=== PATIENT | female | born 1975 ===

== ENCOUNTER 2023-06-03 15:21 | Outpatient (AMB) | payer OTHER, SELFPAY ==
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
[2023-06-03 15:40] VITALS: BP 120/76; PULSE 92; TEMP 37.3; O2SAT 98; BMI 24.1
== END 2023-06-03 16:49 | disposition home or self-care (01) ==
PROVIDERS: Visit Provider Physician Assistant
DX: R10.32 Left lower quadrant pain (principal)
CPT/HCPCS: 81003; 99203

== ENCOUNTER 2023-10-09 08:08 | Outpatient (AMB) | payer OTHER, SELFPAY ==
[2023-10-09 08:25] VITALS: BP 102/70; PULSE 97; TEMP 36.8; O2SAT 99; BMI 24.1
--- NOTE | 2023-10-09 08:25 | MHC.OFFWIV ---
Intake Vital Signs 10/09/23 08:25 Height 5 ft Weight 123 lb 8 oz BMI 24.1 BP 102/70 Blood Pressure Location Lt brachial Position Sitting Pulse 97 Pulse Source Pulse Oximeter Temp 98.3 F Temp Source Oral Pulse Oximetry (%) 99 Oxygen Delivery Method Room Air Intake Visit Reasons: EP both ears pain/pressure Intake Note: Pt presents to the office today for c/o ear pain and pressure that started about 6 weeks ago but states the last 10 days have gotten worse. Pt states she also has head pressure as well. Patient Tobacco Use Status: Never used Tobacco Allergies No Known Allergies Allergy (Verified 10/09/23 08:48) Medication List - Last Reconciled 10/09/23 by Javier Cao, ROSELYN fexofenadine 60 mg PO BID fluticasone propionate 50 mcg/actuation 1 spray intranasal BID methocarbamol 500 mg PO BEDTIME omeprazole 20 mg PO DAILY rimegepant (Nurtec ODT) 75 mg PO DAILY HPI HPI Comments History of Present Illness Details Patient is a 48-year-old female in today for sick visit. Patient states for the past 10 days she has developed symptoms of sinus tenderness and pressure as well as bilateral ear pain and a feeling of ear fullness. She also reports intermittent sinus pressure headache. Patient denies chest pain, chest pressure, dizziness, nausea, vomiting, diarrhea Patient has utilize Mei and fluticasone with mild relief. She states she feels like she has mucus that she needs to bring up is unable to. PFSH Social History Patient Tobacco Use Status: Never used Tobacco Review of Systems Const All systems reviewed & are unremarkable except as noted in HPI and below Physical Exam Vital Signs: Last Vital Signs Temp 98.3 F 10/09/23 08:25 Pulse 97 10/09/23 08:25 BP 102/70 10/09/23 08:25 Pulse Ox 99 10/09/23 08:25 Oxygen Delivery Method Room Air 10/09/23 08:25 BMI result Body Mass Index 24.1 Const Other: Appearance: Alert.? Oriented X3.? No acute distress.? Head: Normocephalic Eyes: Pupils equal, round and reactive to light.?Sclera white. ENT: Pharynx + post nasal drip. No erythema. + sinus tenderness. Bilateral cerumen impaction. Neck: Normal inspection.? Neck supple.?Full ROM. CVS: Normal heart rate and rhythm.? Pulses normal.? Respiratory: No respiratory distress.? Breath sounds normal.? Neuro: Oriented X 3.? Post cerumen removal. Left TM intact and pearly kowalski. Right TM erythema with effusion. Office Procedures Cerumen Removal From which ear canal was the cerumen removed: bilateral Removal: irrigation Notes: patient tolerated procedure well [id number] Irrigation/Lavage Assessment & Plan Assessment & Plan (1) Otitis media of right ear: Comment: Patient is a tightness media of the right ear. Will give amoxicillin. Code(s): H66.91 - Otitis media, unspecified, right ear Qualifiers: Otitis media type: unspecified Qualified Code(s): H66.91 - Otitis media, unspecified, right ear Plan: Take your medications as prescribed. If you were prescribed antibiotics today, it is important that you take your medication to their entirety, do not skip any doses, do not finish them early. Follow-up with your primary care provider this week. Return to the emergency department with new or worsening symptoms. Such as fevers, chills, chest pain, shortness of breath, nausea, vomiting, dizziness, headache, vision changes, lethargy In case of emergency call 911 Plan Follow-up with PCP Orders: Orders SARS-CoV2/FLU/RSV Today J06.9 - Acute upper respiratory infection, unspecified AMB Cerumen Removal Today H61.23 - Impacted cerumen, bilateral Medications: New amoxicillin 875 mg PO Q12H 14 tabs 0RF Coding Level of Care Code Est Pt Level 3 (14067) Diagnoses Right otitis media, unspecified otitis media type H66.91 Otitis media type: unspecified CPT Codes Office Procedure - CPT: 40239-Kuq Irrigation/Lavage ([id number]) Time Spent (min) 26
== END 2023-10-09 09:36 | disposition home or self-care (01) ==
PROVIDERS: Visit Provider Nurse Practitioner Primary Care
DX: H66.91 Otitis media, unspecified, right ear (principal)
CPT/HCPCS: 69209; 99213

== ENCOUNTER 2023-10-09 10:48 | Outpatient (REF) | payer OTHER, SELFPAY ==
[2023-10-09 11:46] LABS: Influenza A PCR NEGATIVE (Negative); Influenza B PCR NEGATIVE (Negative); Resp Syncy Virus RNA Qual PCR NEGATIVE (Negative); SARS COV2 PCR INHOUSE NEGATIVE (Negative)
== END 2023-10-09 10:49 | disposition home or self-care (01) ==
LOC: HO.HMGCLNP 10:48
PROVIDERS: Visit Provider Nurse Practitioner Primary Care
DX: J06.9 Acute upper respiratory infection, unspecified (principal)
CPT/HCPCS: 0241U

== ENCOUNTER 2024-04-20 09:41 | Outpatient (REF) | payer OTHER, SELFPAY | END 2024-04-20 09:42 | disposition home or self-care (01) | LOC: HO.LAB 09:41 | PROVIDERS: Visit Provider Physician Assistant | DX: N30.00 Acute cystitis without hematuria (principal); H66.91 Otitis media, unspecified, right ear; G43.909 Migraine, unspecified, not intractable, without status migrainosus | CPT/HCPCS: 81003; 87086; 99202 ==

== ENCOUNTER 2024-04-20 09:41 | Outpatient (AMB) | payer OTHER, SELFPAY ==
--- NOTE | 2024-04-20 09:42 | AM.OFFWIN_ITS ---
Intake Vital Signs 04/20/24 09:51 Weight 123 lb BP 132/80 Blood Pressure Location Rt brachial Position Sitting Pulse 82 Pulse Source Pulse Oximeter Temp 97.8 F Temp Source Oral Pulse Oximetry (%) 98 Oxygen Delivery Method Room Air Intake Visit Reasons: EP UTI/headache Intake Note: Patient here for frequent urination, headaches that has been present since thursday. Patient Tobacco Use Status: Never used Tobacco Allergies No Known Allergies Allergy (Verified 04/20/24 09:49) Do you need a note to return to daycare/school/sports/work: No HPI HPI Comments History of Present Illness Details History of Present Illness The patient is a 49-year-old female presenting with urinary symptoms suggestive of a urinary tract infection and an assessment for migraine headaches and possible ear infection. The patient reports the onset of urinary tract infection symptoms beginning 5 days ago, which prompted a visit to an urgent care clinic while out of town 4 days ago. There, she was prescribed Macrobid (nitrofurantoin) for treatment. Despite initiation of antibiotic therapy, the patient indicates that symptoms have persisted with no improvement, even as she approaches the final day of her prescribed course. Symptoms include urinary urgency, burning sensation, and pressure, without a noted worsening. She reports no current blood in the urine, fever, or back pain related to the urinary tract infection symptoms. The Macrobid treatment has also caused significant nausea. The patient also reports experiencing headaches, which she describes as persistent and not responsive to her usual migraine medication, Nyrtec (Rizatriptan), which typically provides effective relief. The headache intensity has also led to light sensitivity and cessation of her physical activities. 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 The patient has had surgical intervention to address kidney issues as a child. The patient also mentions experiencing recurring ear infections since relocation and presented concerns regarding her persistent headaches and potential ear infections, as she had a similar experience last year. [facility] Social History Patient Tobacco Use Status: Never used Tobacco Review of Systems Const All systems reviewed & are unremarkable except as noted in HPI and below Physical Exam Vital Signs: Last Vital Signs Temp 97.8 F 04/20/24 09:51 Pulse 82 04/20/24 09:51 BP 132/80 04/20/24 09:51 Pulse Ox 98 04/20/24 09:51 Oxygen Delivery Method Room Air 04/20/24 09:51 Const General: cooperative, healthy appearing, comfortable, no acute distress and well developed Orientation/consciousness: patient oriented x3 Limitations: no limitations HEENT Head: Yes normal to inspection Ears: hearing grossly normal bilaterally, TM normal on the left and TM abnormal dull, wth effusion (right) and erythematous General nose exam: Normal external nose present Face and sinus: Yes normal facial exam Eyes General: appearance normal, both eyes and all related structures Neck Neck: Yes normal visual inspection and Yes full ROM Resp Effort & Inspection: normal respiratory effort and able to speak in complete sentences Skin General skin exam: no rashes or lesions noted Neuro General: patient oriented x3 Extrem General: Yes normal to inspection Results AMB Urinalysis, Automated UA Leukoctes 0 Lilia/uL Last Edit by Kathy Armstrong [facility] on 04/20/24 10:15 UA Nitrite Negative Last Edit by Kathy Armstrong [facility] on 04/20/24 10:15 UA Urobilinogen 0.2 mg/dL Last Edit by Kathy Armstrong [facility] on 04/20/24 10:15 UA Protein 0 mg/dL Last Edit by Kathy Armstrong [facility] on 04/20/24 10:15 UA pH 6.0 Last Edit by Kathy Armstrong [facility] on 04/20/24 10:15 UA Blood 0 [place]/uL Last Edit by Kathy Armstrong [facility] on 04/20/24 10:15 UA Specific [place] 0 Last Edit by Kathy Armstrong [facility] on 04/20/24 10:1 5 UA Ketone Negative Last Edit by Kathy Armstrong [facility] on 04/20/24 10:15 UA Bilirubin 0 mg/dL Last Edit by Kathy Armstrong [facility] on 04/20/24 10:15 UA Glucose 0 mg/dL Last Edit by Kathy Armstrong [facility] on 04/20/24 10:15 Assessment & Plan Assessment & Plan (1) UTI (urinary tract infection): Code(s): N39.0 - Urinary tract infection, site not specified Qualifiers: Urinary tract infection type: acute cystitis Hematuria presence: without hematuria Qualified Code(s): N30.00 - Acute cystitis without hematuria Plan: UA negative for infection or blood. Will treat for Urinary Tract Infection based on symptoms. Continue with the current course of Macrobid until completion. Initiate cefuroxime for a potential complicated urinary tract infection should symptoms persist after finishing Macrobid. A urine culture will be performed to monitor bacterial growth and antibiotic sensitivity. (2) Otitis media of right ear: Comment: Code(s): H66.91 - Otitis media, unspecified, right ear Qualifiers: Otitis media type: unspecified Qualified Code(s): H66.91 - Otitis media, unspecified, right ear Plan: Acute Otitis Media: Prescribed cefuroxime, which covers ear infections; dosage as needed to cover both urinary tract symptoms and otitis media. Likely causing headache symptoms. (3) Migraine headache: Code(s): G43.909 - Migraine, unspecified, not intractable, without status migrainosus Qualifiers: Migraine type: unspecified Status migrainosus presence: without status migrainosus Intractability: not intractable Qualified Code(s): G43.909 - Migraine, unspecified, not intractable, without status migrainosus Plan: Migraine Headache: Provide symptomatic treatment with Tylenol acetaminophen) and ibuprofen in alternating doses as part of adjunct therapy. Treated with hydration and lifestyle modifications such as rest and caffeine intake to manage headache symptoms. Consideration that the headache may be exacerbated by the ear infection. Plan Patient was informed and verbally consented to the use of an ambient scribe for clinic note documentation during this visit. Orders: Orders Urine Culture Today N39.0 - Urinary tract infection, site not specified Coding Level of Care Code New Pt Level 4 (95932) Diagnoses Acute cystitis without hematuria N30.00 Urinary tract infection type: acute cystitis Hematuria presence: without hematuria Right otitis media, unspecified otitis media type H66.91 Otitis media type: unspecified Migraine without status migrainosus, not intractable, unspecified migraine type G43.909 Migraine type: unspecified Status migrainosus presence: without status migrainosus Intractability: not intractable
--- OUTSIDE RECORDS SUMMARY | 2024-04-20 09:44 | XMS_ITS | Continuity of Care Document ---
Author Organization [facility] Address [address] [place] [address]- Care Team Providers Care Optimization Analyst Name Role Phone Kiley Call MD, V Primary Care Physician [phone] [place] [facility] [place]/23 [facility] [address] [place], [place] [id number]- [place] Allergies, Adverse Reactions, Alerts No Known Medication Allergies Medications Mei 12 Hour Allergy 60 mg oral tablet 1 tablet = 60 mg, By Mouth, 2 times a day, # 60 tablet, 6 Refills, Maintenance, 08/27/23 11:28:00 EDT, [id number], Partial fill upon patient request if the prescription is for a schedule II opioid drug., 153, cm, 08/27/23 11:13:00 EDT... Start Date: 08/27/23 Status: Ordered Botox Inj 0 Refills, Maintenance, 01/28/23 15:45:00 EDT, Partial fill upon patient request if the prescription is for a schedule II opioid drug. Start Date: 01/28/23 Status: Ordered diclofenac 1% topical gel 1 application, Topically, 4 times a day, # 100 Gm, 0 Refills, Maintenance, 06/23/23 11:54:00 EST, Gel, [facility] #[id number], Partial fill upon patient request if the prescription is for a schedule II opioid drug., 153, cm, 01/28/23 15:40:00 EDT... Start Date: 06/23/23 Status: Ordered Fish Oil By Mouth, 0 Refills, Maintenance, 10/05/23 17:22:00 EDT, Partial fill upon patient request if the prescription is for a schedule II opioid drug. Start Date: 10/05/23 Status: Ordered Flonase Allergy Relief 50 mcg/inh nasal spray 1 sprays, Nares, Both, 2 times a day, PRN Congestion, # 16 Gm, 3 Refills, Maintenance, 03/02/23 8:07:00 EDT, [facility] #[id number], Partial fill upon patient request if the prescription is for a schedule II opioid drug., 153, cm, 01/28/23 15:40:... Start Date: 03/02/23 Status: Ordered metroNIDAZOLE 0.75% topical cream 0 Refills, Maintenance, 12/23/23 16:21:00 EDT, Partial fill upon patient request if the prescription is for a schedule II opioid drug. Start Date: 12/23/23 Status: Ordered Multivitamin 0 Refills, Maintenance, 10/05/23 17:22:00 EDT, Partial fill upon patient request if the prescription is for a schedule II opioid drug. Start Date: 10/05/23 Status: Ordered Nurtec ODT 75 mg oral tablet, disintegrating 1 tablet = 75 mg, By Mouth, Every 24 hours, PRN as needed for migraine headache, not to exceed 75 mg in 24 hours, # 30 tablet, 6 Refills, Maintenance, 03/11/23 12:32:00 EDT, DIS Tablet, [facility] #[id number], Partial fill upon patient request if... Start Date: 03/11/23 Status: Ordered omeprazole 20 mg oral enteric coated capsule 1 capsule, By Mouth, Daily, # 90 capsule, 3 Refills, Maintenance, 12/29/23 8:37:00 EDT, [facility] #[id number], 152.4, cm, 12/23/23 16:22:00 EDT, Height, 56.1, kg, 11/23/23 10:11:00 EDT, Dry Weight Start Date: 12/29/23 Status: Ordered Vitamin B12 0 Refills, Maintenance, 10/05/23 17:22:00 EDT, Partial fill upon patient request if the prescription is for a schedule II opioid drug. Start Date: 10/05/23 Status: Ordered Problem List Condition Confirmation Course Effective Dates Status Health St atus Informant Allergic rhinitis with postnasal drip Confirmed Active Synovitis of finger Confirmed Active Greater trochanteric bursitis of left hip Confirmed Active History of traumatic brain injury Confirmed Active Schatzki's ring of distal esophagus Confirmed Active Snoring Confirmed Active Social History Social History Type Response Smoking Status Never (less than 100 in lifetime) entered on: 01/28/23 Sex Patient Care team information Care Team Personnel Name: Kiley Call MD, V Position: [facility] Physician - Primary Care Member Role: PCP Address: Address: [address] [place] [address]- Care Team Related Persons Name: SOLANGE MEADOWS Address: home [address] [place] [address]
--- OUTSIDE RECORDS SUMMARY | 2024-04-20 09:45 | XMS_ITS | Continuity of Care Document ---
Author Organization [facility] Address [address] [place] [address]- Care Team Providers Care Network Control Technician Name Role Phone Kiley Call MD, V Primary Care Physician Encounter [facility] ACCT R [id number] Date(s): 09/18/23 - 10/18/23 [facility] [address] [place], [place] [address] Allergies, Adverse Reactions, Alerts No Known Medication Allergies Medications Mei 12 Hour Allergy 60 mg oral tablet 1 tablet = 60 mg, By Mouth, 2 times a day, # 60 tablet, 6 Refills, Maintenance, 08/27/23 11:28:00 EDT, [facility] #[id number], Partial fill upon patient request if the [...] 0 Refills, Maintenance, 06/23/23 11:54:00 EST, Gel, [facility] #[id number], Partial fill upon patient request if the [...] Gm, 3 Refills, Maintenance, 03/02/23 8:07:00 EDT, [facility] #[id number], Partial fill upon patient request if the prescription is for a schedule II opioid drug., 153, cm, 01/28/23 15:40:... Start Date: 03/02/23 Status: Ordered Multivitamin 0 Refills, Maintenance, 10/05/23 [...] Refills, Maintenance, 03/11/23 12:32:00 EDT, DIS Tablet, [facility] #[id number], Partial fill upon patient request if... Start Date: 03/11/23 Status: Ordered PriLOSEC OTC 20 mg oral delayed release tablet 1 tablet = 20 mg, By Mouth, Daily, # 90 tablet, 3 Refills, Maintenance, 03/03/23 7:55:00 EDT, EC Tablet, [facility] #[id number], Partial fill upon patient request if the prescription is for a schedule II opioid drug., 153, cm, 01/28/23 15:40:00 E... Start Date: 03/03/23 Status: Ordered Vitamin B12 0 Refills, Maintenance, [...] Care team information Care Team Personnel Name: Jakub DAVIS, Kiley Dawkins Position: S Physician - Primary Care Member Role: PCP Address: Address: [address] [place] [address]- Care Team Related Persons Name: SOLANGE GRANADOS Address: home [address] [place] [address]
--- OUTSIDE RECORDS SUMMARY | 2024-04-20 09:45 | XMS_ITS | Continuity of Care Document ---
Author Organization [facility] Address [address] [place] [address]- Care Team Providers Care Management Liaison Name Role Phone Jakub DAVIS, Kiley Dawkins Primary Care Physician Encounter [facility] Date(s): 06/23/23 - 06/30/23 [facility] [address] [place], [place] [address] Encounter Diagnosis Hip bursitis, left(Discharge Diagnosis) - 06/23/23 Schatzki's ring of distal esophagus(Discharge Diagnosis) - 06/23/23 Synovitis of finger(Discharge Diagnosis) - 06/23/23 Facial skin lesion(Discharge Diagnosis) - 06/23/23 Snoring(Discharge Diagnosis) - 06/23/23 Attending Physician: Jakub DAVIS, Kiley Dawkins Allergies, Adverse Reactions, Alerts No Known Medication Allergies Medications Botox Inj 0 Refills, Maintenance, 01/28/23 15:45:00 EDT, Partial fill upon patient request if the prescription is for a schedule II opioid drug. Start Date: 01/28/23 Status: Ordered diclofenac 1% topical gel 1 application, Topically, 4 times a day, # 100 Gm, 0 Refills, Maintenance, 06/23/23 11:54:00 EST, Gel, [facility] #[id number], Partial fill upon patient request if the prescription is for a schedule II opioid drug., 153, cm, 01/28/23 15:40:00 EDT... Start Date: 06/23/23 Status: Ordered Flonase Allergy Relief 50 mcg/inh nasal spray 1 sprays, Nares, Both, 2 times a day, PRN Congestion, # 16 Gm, 3 Refills, Maintenance, 03/02/23 8:07:00 EDT, [facility] #[id number], Partial fill upon patient request if the prescription is for a schedule II opioid drug., 153, cm, 01/28/23 15:40:... Start Date: 03/02/23 Status: Ordered Nurtec ODT 75 mg oral tablet, disintegrating 1 tablet = 75 mg, By Mouth, Every 24 hours, PRN as needed for migraine headache, not to exceed 75 mg in 24 hours, # 30 tablet, 6 Refills, Maintenance, 03/11/23 12:32:00 EDT, DIS Tablet, [facility] #[id number], Partial fill upon patient request if... Start Date: 03/11/23 Status: Ordered PriLOSEC OTC 20 mg oral delayed release tablet 1 tablet = 20 mg, By Mouth, Daily, # 90 tablet, 3 Refills, Maintenance, 03/03/23 7:55:00 EDT, EC Tablet, [facility] #[id number], Partial fill upon patient request if the prescription is for a schedule II opioid drug., 153, cm, 01/28/23 15:40:00 E... Start Date: 03/03/23 Status: Ordered Problem List Condition Confirmation Course Effective Dates Status Health St atus Informant Hip bursitis, left Confirmed Active Synovitis of finger Confirmed Active Facial skin lesion Confirmed Active Schatzki's ring of distal esophagus Confirmed Active Snoring Confirmed Active Diagnosis Diagnosis Type Effective Dates Health Status inical Service Informant Hip bursitis, left Discharge Diagnosis 06/23/23 Schatzki's ring of distal esophagus Discharge Diagnosis 06/23/23 Synovitis of finger Discharge Diagnosis 06/23/23 Facial skin lesion Discharge Diagnosis 06/23/23 Snoring Discharge Diagnosis 06/23/23 Vital Signs Most recent to oldest [Reference Range]: 1 Height 153 cm (06/23/23 1:43 PM) Weight 53.6 kg (06/23/23 1:43 PM) Social History Social History Type Response Smoking Status Never (less than 100 in lifetime) entered on: 01/28/23 Sex Note * Margie Deshpande: PERFORM, SIGN, VERIFY Event Display: Patient Education/Instruction Authored Date: [id number] [facility] Clinical Summary Name MADISON MEADOWS Age 48 Years 1975 PCP Kiley Call MD, V PCP Visit Date 06/23/2023 11:23:00 Additional Instructions: Scheduled Appointments?? Future Appointments ?*[facility] ?[address] ?[place],??[place],??[address] ?Phone:??--?Fax:??-- ?Appt. Date:??07/07/2023?7:30 AM ?Scheduled Provider:??Venkatesh DAVIS, Denys Marrufo ?*[facility] ?[address]??[place],??[place],??[address] ?Phone:??--?Fax:??-- ?Appt. Date:??07/30/2023?4:00 PM ?Scheduled Provider:??Kiley Call MD, V Follow-Up Instructions ?? Diagnosis Other bursitis of hip, left hip Medications: Please continue your medications until treatment is completed or stopped by your provider. Discuss any questions related to medications with your provider. New Medications [id number], [address] [place] [id number], [phone] Diclofenac Topical (diclofenac 1% topical gel) 1 lewis Topically 4 times a day. Refills: 0. Next Dose: Medications to Continue with No Changes These medications were not printed or sent to your pharmacy Fluticasone Nasal (Flonase Allergy Relief 50 mcg/inh nasal spray) 1 spray(s) Nares, Both twice a day as needed Congestion. Refills: 3. Next Dose: Omeprazole (PriLOSEC OTC 20 mg oral delayed release tablet) 1 tab(s) Oral Daily. Refills: 3. Next Dose: onabotulinumtoxinA (Botox Inj) Next Dose: rimegepant (Nurtec ODT 75 mg oral tablet, disintegrating) 1 tab(s) Oral every 24 hours as needed asneeded for migraine headache. not to exceed 75 mg in 24 hours. Refills: 6. Next Dose: Allergy Info:?? No Known Medication Allergies Medications Given This Visit Future Orders ?Hip Comp 2 Views Left? Order Date:06/23/23?- Complete by?06/23/23 ?MM Digital Mammo Screening? Order Date:06/23/23?- Complete on or after?06/23/23 Vital Signs Height Weight BMI Blood Pressure / Temperature Pulse Rate Respiratory Rate 02 Sat Mode of Delivery / You can now view a summary of your hospital visit from the comfort of your home through a free online portal called [employer]. [employer] is a website that allows you to securely view your medical information including discharge summary, medications and follow-up visits. ??You can alsosend a secure electronic message to your doctor???s office to request appointments, renew medications or just ask a question. You can enroll at [email or web address] or register during your next office visit. Disclaimer:?? The information provided is of a general nature and is intended to be used in conjunction with the recommendations and advice of your health care practitioner. ??Every effort has been made to ensure that the information provided is accurate and complete at the time it is provided to you however, as your needs change, or, as new ??information becomes available, different or additional instructions may be required. If you have questions, please consult with your primary care provider or pharmacist, as appropriate. ??This information is not intended to serve as substitution for assessment and evaluation by a qualified health care provider. If you do not have a primary care provider, you may find a [facility] provider by calling [facility] at [phone]. [facility], in keeping with [facility] guidance, no longer requires face masks for staff, patientsor visitors in most situations. Similar to time spent indoors at other locations, there is the chance that you were exposed to respiratory viruses during your time with us (such as flu or COVID-19).? If you develop symptoms concerning for a viral respiratory infection, please seek testing (and treatment if indicated) from your medical provider or home test kit. For information about the plan of care including goals and instructions for your diagnosis, please see the patient education orders section of this document. Patient Education Materials?? The content of this educational material or handout may have been modified, supplemented, or adapted from its original content and format to support your individualized medical care. Patient Care team information Care Team Personnel Name: Kiley Call MD, V Position: [facility] Physician - Primary Care Member Role: PCP Address: Address: [address] [place] [address]- [place] Care Team Related Persons Name: SOLANGE GRANADOS Address: home [address] [place], [place] [id number]
--- OUTSIDE RECORDS SUMMARY | 2024-04-20 09:45 | XMS_ITS | Continuity of Care Document ---
Author Organization [facility] Address [address] [place] [address]- Care Team Providers Care Plastic Sheets Finishing Supervisor Name Role Phone Kiley Call MD, V Primary Care Physician Encounter [facility] Date(s): 11/04/23 - 11/11/23 [facility] [address] [place] [address]- Encounter Diagnosis Greater trochanteric pain syndrome of right lower extremity(Discharge Diagnosis) - 11/04/23 Hamstring tendinitis of right thigh(Discharge Diagnosis) - 11/04/23 Pes anserinus bursitis of right knee(Discharge Diagnosis) - 11/04/23 Attending Physician: Mikie Gunter MD Referring Physician: Kiley Call MD, V Allergies, Adverse Reactions, Alerts No Known Medication Allergies Medications Mei 12 Hour Allergy 60 mg oral tablet 1 tablet = 60 mg, By Mouth, 2 times a day, # 60 tablet, 6 Refills, Maintenance, 08/27/23 11:28:00 EDT, [facility] #[id number], Partial fill upon patient request if the [...] 0 Refills, Maintenance, 06/23/23 11:54:00 EST, Gel, [facility] #[id number], Partial fill upon patient request if the [...] Gm, 3 Refills, Maintenance, 03/02/23 8:07:00 EDT, [facility] #[id number], Partial fill upon patient request if the [...] Refills, Maintenance, 03/11/23 12:32:00 EDT, DIS Tablet, [facility] #[id number], Partial fill upon patient request if... Start Date: 03/11/23 Status: Ordered PriLOSEC OTC 20 mg oral delayed release tablet 1 tablet = 20 mg, By Mouth, Daily, # 90 tablet, 3 Refills, Maintenance, 03/03/23 7:55:00 EDT, EC Tablet, [facility] #[id number], Partial fill upon patient request if the [...] Diagnosis Diagnosis Type Effective Dates Health Status Clinical Service Informant Greater trochanteric pain syndrome of right lower extremity Discharge Diagnosis 11/04/23 Hamstring tendinitis of right thigh Discharge Diagnosis 11/04/23 Pes anserinus bursitis of right knee Discharge Diagnosis 11/04/23 Vital Signs Most recent to oldest [Reference Range]: 1 Height 153 cm (11/04/23 4:20 PM) Weight 58.4 kg (11/04/23 4:20 PM) Oxygen Saturation [94-100 %] 98 % (11/04/23 4:20 PM) Pulse Rate [55-90 bpm] 87 bpm (11/04/23 4:20 PM) Body Mass Index [18.5-24.99 kg/m2] 24.95 kg/m2 (11/04/23 4:20 PM) Blood Pressure [90-138/55-84 mm Hg] 113/ 78mm Hg (11/04/23 4:20 PM) Respiratory Rate [16-30 br/min] 16 br/mi n (11/04/23 4:20 PM) Blood pressure sites Arm, right (11/04/23 4:20 PM) Weight Obtained Via Bed scale (11/04/23 4:20 PM) Social History Social History Type Response Smoking Status Never (less than 100 in lifetime) entered on: 01/28/23 Sex Patient Care team information Care Team Personnel Name: Kiley Call MD, V Position: [facility] Physician - Primary Care Member Role: PCP Address: Address: [address] [place] [address]- Care Team Related Persons Name: SOLANGE GRANADOS Address: home [address] [place] [address]
--- OUTSIDE RECORDS SUMMARY | 2024-04-20 09:45 | XMS_ITS | Continuity of Care Document ---
Author Organization [facility] Address [address] [facility], [address], [address] [place] [address]- Care Team Providers Care Collateral Specialist Name Role Phone Kiley Call MD, V Primary Care Physician [phone] Encounter [facility] ACCT R [id number] Date(s): 06/26/23 - 07/26/23 [facility] [address], [address], [address] [place] [address] Allergies, Adverse Reactions, Alerts No Known Medication Allergies Medications Botox Inj 0 Refills, Maintenance, 01/28/23 15:45:00 EDT, Partial fill upon patient request if the prescription is for a schedule II opioid drug. Start Date: 01/28/23 Status: Ordered diclofenac 1% topical gel 1 application, Topically, 4 times a day, # 100 Gm, 0 Refills, Maintenance, 06/23/23 11:54:00 EST, Gel, [facility] #[id number], Partial fill upon patient request if the prescription is for a schedule II opioid drug., 153, cm, 01/28/23 15:40:00 EDT... Start Date: 06/23/23 Status: Ordered Flonase Allergy Relief 50 mcg/inh nasal spray 1 sprays, Nares, Both, 2 times a day, PRN Congestion, # 16 Gm, 3 Refills, Maintenance, 03/02/23 8:07:00 EDT, [facility] #[id number], Partial fill upon patient request if the [...] Refills, Maintenance, 03/11/23 12:32:00 EDT, DIS Tablet, [facility] #[id number], Partial fill upon patient request if... Start Date: 03/11/23 Status: Ordered PriLOSEC OTC 20 mg oral delayed release tablet 1 tablet = 20 mg, By Mouth, Daily, # 90 tablet, 3 Refills, Maintenance, 03/03/23 7:55:00 EDT, EC Tablet, [facility] #[id number], Partial fill upon patient request if the prescription is for a schedule II opioid drug., 153, cm, 01/28/23 15:40:00 E... Start Date: 03/03/23 Status: Ordered Problem List Condition Confirmation Course Effective Dates Status Health St atus Informant Synovitis of finger Confirmed Active Greater trochanteric bursitis of left hip Confirmed Active Facial skin lesion Confirmed Active Schatzki's ring of distal esophagus Confirmed Active Snoring Confirmed Active Social History Social History Type Response Smoking Status Never (less than 100 in lifetime) entered on: 01/28/23 Sex Patient Care team information Care Team Personnel Name: Jakub DAVIS, Kiley Dawkins Position: [facility] Physician - Primary Care Member Role: PCP Address: Address: [address] [place] [address]- Care Team Related Persons Name: SOLANGE GRANADOS Address: home [address] [place], [place] [id number]
--- OUTSIDE RECORDS SUMMARY | 2024-04-20 09:45 | XMS_ITS | Continuity of Care Document ---
Author Organization [facility] Address [address] [place] [address]- Care Team Providers Care Device Test Engineer Name Role Phone Jakub DAVIS, Kiley Dawkins Primary Care Physician Encounter [facility] [place] Date(s): 05/28/23 - 06/27/23 [facility] [address] [place], [place] [address] Allergies, Adverse Reactions, Alerts No Known Medication Allergies Medications Botox Inj 0 Refills, Maintenance, 01/28/23 15:45:00 EDT, Partial fill upon patient request if the prescription is for a schedule II opioid drug. Start Date: 01/28/23 Status: Ordered diclofenac 1% topical gel 1 application, Topically, 4 times a day, # 100 Gm, 0 Refills, Maintenance, 06/23/23 11:54:00 EST, Gel, [facility] #[id number], Partial fill upon patient request if the prescription is for a schedule II opioid drug., 153, cm, 01/28/23 15:40:00 EDT... Start Date: 06/23/23 Status: Ordered Flonase Allergy Relief 50 mcg/inh nasal spray 1 sprays, Nares, Both, 2 times a day, PRN Congestion, # 16 Gm, 3 Refills, Maintenance, 03/02/23 8:07:00 EDT, [facility] #[id number], Partial fill upon patient request if the [...] Refills, Maintenance, 03/11/23 12:32:00 EDT, DIS Tablet, [facility] #[id number], Partial fill upon patient request if... Start Date: 03/11/23 Status: Ordered PriLOSEC OTC 20 mg oral delayed release tablet 1 tablet = 20 mg, By Mouth, Daily, # 90 tablet, 3 Refills, Maintenance, 03/03/23 7:55:00 EDT, EC Tablet, [facility] #[id number], Partial fill upon patient request if the [...] Personnel Name: Jakub DAVIS, Kiley Dawkins Position: [facility] Physician - Primary Care Member Role: PCP Address: Address: [address] [place] [address]- Care Team Related Persons Name: SOLANGE GRANADOS Address: home [address] [place] [id number]
--- OUTSIDE RECORDS SUMMARY | 2024-04-20 09:45 | XMS_ITS | Continuity of Care Document ---
Author Organization [facility] Address [address] [place] [address]- Care Team Providers Care Sales Research Analyst Name Role Phone Not on Staff, PCP Primary Care Physician Unavail able En[place] [facility] Date(s): 01/28/23 - 02/04/23 [facility] [address] [place], [place] [address] Encounter Diagnosis Schatzki's ring of distal esophagus(Discharge Diagnosis) - 01/28/23 Establishing care with new doctor, encounter for(Discharge Diagnosis) - 01/28/23 Chronic migraine without aura, not intractable, without status migrainosus (Discharge Diagnosis) - 01/28/23 Attending Physician: Kiley Call MD, V Allergies, Adverse Reactions, Alerts No Known Medication Allergies Medications Botox Inj 0 Refills, Maintenance, 01/28/23 15:45:00 EDT, Partial fill upon patient request if the prescription is for a schedule II opioid drug. Start Date: 01/28/23 Status: Ordered Flonase Daily, 0 Refills, Maintenance, 01/28/23 15:44:00 EDT, Partial fill upon patient request if the prescription is for a schedule II opioid drug. Start Date: 01/28/23 Status: Ordered Nurtec ODT 75 mg oral tablet, disintegrating 1 tablet = 75 mg, By Mouth, Every 24 hours, PRN as needed for migraine headache, not to exceed 75 mg in 24 hours, # 8 tablet, 5 Refills, Maintenance, 01/28/23 15:44:00 EDT, [facility] Table[facility], Partial fill upon patient request if the prescription is for a rashi... Start Date: 01/28/23 Status: Ordered PriLOSEC OTC 20 mg oral delayed release tablet 1 tablet = 20 mg, By Mouth, Daily, # 30 tablet, 0 Refills, Maintenance, 01/28/23 15:44:00 EDT, [facility], Partial fill upon patient request if the prescription is for a schedule II opioid drug. Start Date: 01/28/23 Status: Ordered Problem List Condition Confirmation Course Effective Dates Status Health St atus Informant Schatzki's ring of distal esophagus Confirmed Active Migraines Confirmed Active Establishing care with new doctor, encounter for Confirmed Active Diagnosis Diagnosis Type Effective Dates Health Status Clinical Service Informant Chronic migraine without aura, not intractable, without status migrainosus Discharge Diagnosis 01/28/23 Establishing care with new doctor, encounter for Discharge Diagnosis 01/28/23 Schatzki's ring of distal esophagus Discharge Diagnosis 01/28/23 Vital Signs Most recent to oldest [Reference Range]: 1 Height 153 cm (01/28/23 3:40 PM) Weight 53.6 kg (01/28/23 3:40 PM) Body Mass Index [18.5-24.99 kg/m2] 22.9 kg/m2 (01/28/23 3:40 PM) Weight Obtained Via Patient/family state d (01/28/23 3:40 PM) Social History Social History Type Response Smoking Status Never (less than 100 in lifetime) entered on: 01/28/23 Sex Patient Care team information Care Team Personnel Name: Not on Staff, PCP Position: S Physician (General Medicine) Member Role: PCP Care Team Related Persons Name: SOLANGE GRANADOS Address: home [address] [place], [place] [id number]
--- OUTSIDE RECORDS SUMMARY | 2024-04-20 09:45 | XMS_ITS | Continuity of Care Document ---
Author Organization [facility] Address [address] [place] [address]- Care Team Providers Care Pricing/Signage Team Member Name Role Phone Not on Staff, PCP Primary Care Physician Unavail able Encounter [facility] [place] Date(s): 02/26/23 - 03/28/23 [facility] [address] [place], [place] [address] Allergies, Adverse Reactions, Alerts No Known Medication Allergies Medications Botox Inj 0 Refills, Maintenance, 01/28/23 15:45:00 EDT, Partial fill upon patient request if the prescription is for a schedule II opioid drug. Start Date: 01/28/23 Status: Ordered Flonase Allergy Relief 50 mcg/inh nasal spray 1 sprays, Nares, Both, 2 times a day, PRN Congestion, # 16 Gm, 3 Refills, Maintenance, 03/02/23 8:07:00 EDT, [facility] #[id number], Partial fill upon patient request if the [...] Refills, Maintenance, 03/11/23 12:32:00 EDT, DIS Tablet, [facility] #[id number], Partial fill upon patient request if... Start Date: 03/11/23 Status: Ordered PriLOSEC OTC 20 mg oral delayed release tablet 1 tablet = 20 mg, By Mouth, Daily, # 90 tablet, 3 Refills, Maintenance, 03/03/23 7:55:00 EDT, EC Tablet, [facility] #[id number], Partial fill upon patient request if the prescription is for a schedule II opioid drug., 153, cm, 01/28/23 15:40:00 E... Start Date: 03/03/23 Status: Ordered Problem List Condition Confirmation Course Effective Dates Status Health St atus Informant Schatzki's ring of distal esophagus Confirmed Active Migraines Confirmed Active Establishing care with new doctor, encounter for Confirmed Active Social History Social History Type Response Smoking Status Never (less than 100 in lifetime) entered on: 01/28/23 Sex Patient Care team information Care Team Personnel Name: Not on Staff, PCP Position: [facility] Physician (General Medicine) Member Role: PCP Care Team Related Persons Name: DARWINSOLANGE Address: home [address] [place] [address]
--- OUTSIDE RECORDS SUMMARY | 2024-04-20 09:45 | XMS_ITS | Continuity of Care Document ---
Author Organization [facility] Address [address] [place] [address]- Care Team Providers Care Cement Loader Name Role Phone Not on Staff, PCP Primary Care Physician Unavail able Encounter [facility] Date(s): 02/25/23 - 03/27/23 [facility] [address] [place], [place] [address] Allergies, Adverse Reactions, Alerts No Known [...] Gm, 3 Refills, Maintenance, 03/02/23 8:07:00 EDT, [facility] #[id number], Partial fill upon patient request if the [...] Refills, Maintenance, 03/11/23 12:32:00 EDT, DIS Tablet, [facility] #[id number], Partial fill upon patient request if... Start Date: 03/11/23 Status: Ordered PriLOSEC OTC 20 mg oral delayed release tablet 1 tablet = 20 mg, By Mouth, Daily, # 90 tablet, 3 Refills, Maintenance, 03/03/23 7:55:00 EDT, EC Tablet, [facility] #[id number], Partial fill upon patient request if the [...] Personnel Name: Not on Staff, PCP Position: [facility] Physician (General Medicine) Member Role: PCP Care Team Related Persons Name: DARWINSOLANGE Address: home [address] [place] [address]
--- OUTSIDE RECORDS SUMMARY | 2024-04-20 09:45 | XMS_ITS | Continuity of Care Document ---
Author Organization [facility] Address [address] [place] [address]- Care Team Providers Care Field Mechanic/Site Lead Name Role Phone Kiley Call MD, V Primary Care Physician [phone] [id number] Date([facility] 09/18/[facility] - 01/06/[address] [address]- Encounter Diagnosis Primary osteoarthritis, left hand(Final) - Discharge Disposition: A-D/C Home Attending Physician: Kiley Call MD, V Admitting Physician: Kiley Call MD, V Referring Physician: Kiley Call MD, V Allergies, Adverse Reactions, Alerts No Known Medication Allergies Medications Mei 12 Hour Allergy 60 mg oral tablet 1 tablet = 60 mg, By Mouth, 2 times a day, # 60 tablet, 6 Refills, Maintenance, 08/27/23 11:28:00 EDT, [facility] #[id number], Partial fill upon patient request if the [...] 0 Refills, Maintenance, 06/23/23 11:54:00 EST, Gel, [facility] #[id number], Partial fill upon patient request if the [...] Gm, 3 Refills, Maintenance, 03/02/23 8:07:00 EDT, [facility] #[id number], Partial fill upon patient request if the [...] Refills, Maintenance, 03/11/23 12:32:00 EDT, DIS Tablet, [facility] #[id number], Partial fill upon patient request if... Start Date: 03/11/23 Status: Ordered omeprazole 20 mg oral enteric coated capsule 1 capsule, By Mouth, Daily, # 90 capsule, 3 Refills, Maintenance, 12/29/23 8:37:00 EDT, [facility] #[id number], 152.4, cm, 12/23/23 16:22:00 EDT, Height, 56.1, [...] Personnel Name: Kiley Call MD, V Position: [facility] Physician - Primary Care Member Role: PCP Address: Address: [address] [place] [address]- Care Team Related Persons Name: SOLANGE MEADOWS Address: home [address] [place] [address]
--- OUTSIDE RECORDS SUMMARY | 2024-04-20 09:45 | XMS_ITS | Continuity of Care Document ---
Author Organization [facility] Address [address] [place] [address]- Care Team Providers Care Mirror Department Supervisor Name Role Phone Kiley Call MD, V Primary Care Physician Encounter [facility] Date(s): 09/23/23 - 10/23/23 [facility] [address] [place] [address]- [place] Allergies, Adverse Reactions, Alerts No Known Medication Allergies Medications Mei 12 Hour Allergy 60 mg oral tablet 1 tablet = 60 mg, By Mouth, 2 times a day, # 60 tablet, 6 Refills, Maintenance, 08/27/23 11:28:00 EDT, [facility] #[id number], Partial fill upon patient request if the [...] 0 Refills, Maintenance, 06/23/23 11:54:00 EST, Gel, [facility] #[id number], Partial fill upon patient request if the [...] Gm, 3 Refills, Maintenance, 03/02/23 8:07:00 EDT, [facility] #[id number], Partial fill upon patient request if the [...] Refills, Maintenance, 03/11/23 12:32:00 EDT, DIS Tablet, [facility] #08825, Partial fill upon patient request if... Start Date: 03/11/23 Status: Ordered PriLOSEC OTC 20 mg oral delayed release tablet 1 tablet = 20 mg, By Mouth, Daily, # 90 tablet, 3 Refills, Maintenance, 03/03/23 7:55:00 EDT, EC Tablet, [facility] #[id number], Partial fill upon patient request if the [...] Personnel Name: Jakub DAVIS, Kiley Dawkins Position: [facility] Physician - Primary Care Member Role: PCP Address: Address: [address] [place] [address]- Care Team Related Persons Name: SOLANGE GRANADOS Address: [address] [address]
--- OUTSIDE RECORDS SUMMARY | 2024-04-20 09:45 | XMS_ITS | Continuity of Care Document ---
Author Organization [facility] Address [address] [place] [address]- Care Team Providers Care Supervisor Mill Name Role Phone Not on Staff, PCP Primary Care Physician Unavail able Encounter [facility] Date(s): 03/11/23 - 04/10/23 [facility] [address] [place], [place] [address] Allergies, Adverse Reactions, Alerts No Known [...] Gm, 3 Refills, Maintenance, 03/02/23 8:07:00 EDT, [facility] #[id number], Partial fill upon patient request if the [...] Refills, Maintenance, 03/11/23 12:32:00 EDT, DIS Tablet, [facility] #[id number], Partial fill upon patient request if... Start Date: 03/11/23 Status: Ordered PriLOSEC OTC 20 mg oral delayed release tablet 1 tablet = 20 mg, By Mouth, Daily, # 90 tablet, 3 Refills, Maintenance, 03/03/23 7:55:00 EDT, EC Tablet, [facility] #[id number], Partial fill upon patient request if the [...] Related Persons Name: SOLANGE GRANADOS Address: home [address] [place], [place] [id number]
--- OUTSIDE RECORDS SUMMARY | 2024-04-20 09:45 | XMS_ITS | Continuity of Care Document ---
Author Organization [facility] Address [address], [place] [address]- Care Team Providers Care Surplus Property Disposal Agent Name Role Phone Kiley Call MD, V Primary Care Physician Encounter [facility] Date(s): 02/19/24 - 03/20/24 [facility] [address] [place], [place] [address] Allergies, Adverse Reactions, Alerts No Known Medication Allergies Medications Mei 12 Hour Allergy 60 mg oral tablet 1 tablet = 60 mg, By Mouth, 2 times a day, # 60 tablet, 6 Refills, Maintenance, 08/27/23 11:28:00 EDT, [facility] #[id number], Partial fill upon patient request if the [...] 0 Refills, Maintenance, 06/23/23 11:54:00 EST, Gel, [facility] #[id number], Partial fill upon patient request if the [...] Gm, 3 Refills, Maintenance, 03/02/23 8:07:00 EDT, [facility] #[id number], Partial fill upon patient request if the [...] exceed 75 mg in 24 hours, # 16 tablet, 5 Refills, Maintenance, 02/16/24 11:43:00 EDT, DIS Tablet, [facility] #[id number], Partial fill upon patient request if... Start Date: 02/16/24 Status: Ordered omeprazole 20 mg oral enteric coated capsule 1 capsule, By Mouth, Daily, # 90 capsule, 3 Refills, Maintenance, 12/29/23 8:37:00 EDT, [facility] #[id number], 152.4, cm, 12/23/23 16:22:00 EDT, Height, 56.1, [...] Personnel Name: Kiley Call MD, V Position: [facility] Physician - Primary Care Member Role: PCP Address: Address: [address] [place] [address]- Care Team Related Persons Name: SOLANGE MEADOWS Address: home [address] [place] [address]
--- OUTSIDE RECORDS SUMMARY | 2024-04-20 09:45 | XMS_ITS | Continuity of Care Document ---
Author Organization [facility] Address [address] [facility], [address] [place] [address]- Care Team Providers Care Belly Packer Name Role Phone Kiley Call MD, V Primary Care Physician [phone] Encounter 07/09/23 - 07/16/23 [facility] [address], [facility] [address] [place] [address]- Attending Physician: Kiley Call MD, V Admitting [...] 0 Refills, Maintenance, 06/23/23 11:54:00 EST, Gel, [facility] #[id number], Partial fill upon patient request if the prescription is for a schedule II opioid drug., 153, cm, 01/28/23 15:40:00 EDT... Start Date: 06/23/23 Status: Ordered Flonase Allergy Relief 50 mcg/inh nasal spray 1 sprays, Nares, Both, 2 times a day, PRN Congestion, # 16 Gm, 3 Refills, Maintenance, 03/02/23 8:07:00 EDT, [facility] #[id number], Partial fill upon patient request if the [...] Refills, Maintenance, 03/11/23 12:32:00 EDT, DIS Tablet, [facility] #[id number], Partial fill upon patient request if... Start Date: 03/11/23 Status: Ordered PriLOSEC OTC 20 mg oral delayed release tablet 1 tablet = 20 mg, By Mouth, Daily, # 90 tablet, 3 Refills, Maintenance, 03/03/23 7:55:00 EDT, EC Tablet, [facility] #[id number], Partial fill upon patient request if the [...] distal esophagus Confirmed Active Snoring Confirmed Active Results Radiology Reports * Exam Date Time Procedure Performing Provider Status 07/09/23 8:55 AM MM Digital Mammo Screening Mabel Tillman ce; Auth (Verified) Notes: (MM Digital Mammo Screening) Reason For Exam: Screening RESULT: MM Digital Mammo Screening PROCEDURE: MM Digital Mammo Screening INDICATION: Screening. No known palpable abnormalities. There is a family history of breast cancer in the patient's mother at age 68. COMPARISON: Prior outside mammograms from [facility] in [place], [place], dated 04/25/2022, 04/25/2021, and 02/21/2020. TECHNIQUE: Full-field digital CC and MLO 3D tomosynthesis images of both breasts were acquired. Computer-aided detection (CAD) was utilized in the interpretation of this study. DENSITY: The breast tissue is heterogeneously dense, which may obscure masses. FINDINGS: There is architectural distortion versus summation artifact in the anterolateral right breast on the CC view about 3.1 cm from the nipple. Spot compression CC and full field ML tomosynthesis images are recommended for further assessment. Ultrasound will be necessary if the abnormality persists. In addition, in the right breast there is a rounded asymmetry in the posterior medial breast about 7 cm from the nipple with possible correlate below the level of the nipple on the MLO view. Spot compression CC and MLO tomosynthesis images are recommended for further assessment. Ultrasound will be necessary if the abnormality persists. In the left breast there is a 7 mm lobulated mass at about the 8-9:00 axis, 4.2 cm from the nipple,which should be further assessed with targeted ultrasound. IMPRESSION: Additional imaging recommended. We will recall the patient. RECOMMENDATION: Bilateral diagnostic 3D tomosynthesis with scheduled ultrasound BI-RADS: 0 (Incomplete - Need Additional Imaging Evaluation. Lay letter mailed to patient WSN: [id number] Ordering Physician: Kiley Call V Dictated By: Radha De La Paz MD Dictated Date/Time: 07/09/23 10:46 am Reviewed By: Radha De La Paz MD Signed By: Radha De La Paz MD Signed Date/Time: 07/09/23 10:46 am Transcribed By: GABY Beef Ribber Date/Time: 07/09/23 10:40 am Birads: Social History Social History Type Response Smoking Status Never (less than 100 in lifetime) entered on: 01/28/23 Sex Patient Care team information Care Team Personnel Name: Kiley Call MD, V Position: S Physician - Primary Care Member Role: PCP Address: Address: [address] [place] [address]- Care Team Related Persons Name: SOLANGE GRANADOS Address: home [address] [place], [place] [phone]
--- OUTSIDE RECORDS SUMMARY | 2024-04-20 09:45 | XMS_ITS | Continuity of Care Document ---
Author Organization [facility] Address [address] [place] [address]- Care Team Providers Care Loan Servicing Representative Name Role Phone Kiley Call MD, V Primary Care Physician Encounter [facility] Date(s): 07/22/23 - 09/19/[address] [address]- Attending Physician: Kiley Call MD, V Admitting Physician: Kiley Call MD, V Referring Physician: Kiley Call MD, V Allergies, Adverse Reactions, Alerts No Known Medication Allergies Medications Mei 12 Hour Allergy 60 mg oral tablet 1 tablet = 60 mg, By Mouth, 2 times a day, # 60 tablet, 6 Refills, Maintenance, 08/27/23 11:28:00 EDT, [facility] #[id number], Partial fill upon patient request if the [...] 0 Refills, Maintenance, 06/23/23 11:54:00 EST, Gel, [facility] #[id number], Partial fill upon patient request if the prescription is for a schedule II opioid drug., 153, cm, 01/28/23 15:40:00 EDT... Start Date: 06/23/23 Status: Ordered Flonase Allergy Relief 50 mcg/inh nasal spray 1 sprays, Nares, Both, 2 times a day, PRN Congestion, # 16 Gm, 3 Refills, Maintenance, 03/02/23 8:07:00 EDT, [facility] #[id number], Partial fill upon patient request if the [...] Refills, Maintenance, 03/11/23 12:32:00 EDT, DIS Tablet, [facility] #[id number], Partial fill upon patient request if... Start Date: 03/11/23 Status: Ordered PriLOSEC OTC 20 mg oral delayed release tablet 1 tablet = 20 mg, By Mouth, Daily, # 90 tablet, 3 Refills, Maintenance, 03/03/23 7:55:00 EDT, EC Tablet, [facility] #[id number], Partial fill upon patient request if the prescription is for a schedule II opioid drug., 153, cm, 01/28/23 15:40:00 E... Start Date: 03/03/23 Status: Ordered Problem List Condition Confirmation Course Effective Dates Status Health St atus Informant Allergic rhinitis with postnasal drip Confirmed Active Synovitis of finger Confirmed Active Greater trochanteric bursitis of left hip Confirmed Active Schatzki's ring of distal esophagus Confirmed Active Snoring Confirmed Active Social History Social History Type Response Smoking Status Never (less than 100 in lifetime) entered on: 01/28/23 Sex Patient Care team information Care Team Personnel Name: Jakub DAVIS, Kiley Dawkins Position: [facility] Physician - Primary Care Member Role: PCP Address: Address: [address] [place] [address]- Care Team Related Persons Name: SOLANGE GRANADOS Address: home [address] [place] [address]
--- OUTSIDE RECORDS SUMMARY | 2024-04-20 09:45 | XMS_ITS | Continuity of Care Document ---
Author Organization [facility] Address [address] [place] [address]- Care Team Providers Care Environmental Services Worker Name Role Phone Kiley Call MD, V Primary Care Physician [facility] [id number] Date(s): 09/18/23 - 10/18/[address] [address] Attending Physician: Marie Mancilla Admitting Physician: Admtr, Ar8 Referring Physician: Admtr, Ar8 Allergies, Adverse Reactions, Alerts No Known Medication Allergies Medications Mei 12 Hour Allergy 60 mg oral tablet 1 tablet = 60 mg, By Mouth, 2 times a day, # 60 tablet, 6 Refills, Maintenance, 08/27/23 11:28:00 EDT, [facility] #[id number], Partial fill upon patient request if the [...] 0 Refills, Maintenance, 06/23/23 11:54:00 EST, Gel, [facility] #[id number], Partial fill upon patient request if the [...] Gm, 3 Refills, Maintenance, 03/02/23 8:07:00 EDT, [facility] #35797, Partial fill upon patient request if the [...] Refills, Maintenance, 03/11/23 12:32:00 EDT, DIS Tablet, [facility] #[id number], Partial fill upon patient request if... Start Date: 03/11/23 Status: Ordered PriLOSEC OTC 20 mg oral delayed release tablet 1 tablet = 20 mg, By Mouth, Daily, # 90 tablet, 3 Refills, Maintenance, 03/03/23 7:55:00 EDT, EC Tablet, [facility] #[id number], Partial fill upon patient request if the [...] Personnel Name: Jakub DAVIS, Kiley Dawkins Position: [facility] Physician - Primary Care Member Role: PCP Address: Address: [address] [place] [address]- Care Team Related Persons Name: SOLANGE GRANADOS Address: home [address] [place] [address]
--- OUTSIDE RECORDS SUMMARY | 2024-04-20 09:45 | XMS_ITS | Continuity of Care Document ---
Author Organization [facility] Address [address] [place] [address]- Care Team Providers Care Holistic Specialist Name Role Phone Jakub DAVIS, Kiley Dawkins Primary Care Physician [facility] [id number] Date(s): 06/23/23 - 07/23/23 [facility] [address] [place], [place] [address] Attending Physician: Marie Mancilla Admitting Physician: Admtr, [...] 0 Refills, Maintenance, 06/23/23 11:54:00 EST, Gel, [facility] #[id number], Partial fill upon patient request if the prescription is for a schedule II opioid drug., Chantal, dayna, 01/28/23 15:40:00 EDT... Start Date: 06/23/23 Status: Ordered Flonase Allergy Relief 50 mcg/inh nasal spray 1 sprays, Nares, Both, 2 times a day, PRN Congestion, # 16 Gm, 3 Refills, Maintenance, 03/02/23 8:07:00 EDT, [facility] #[id number], Partial fill upon patient request if the [...] Refills, Maintenance, 03/11/23 12:32:00 EDT, DIS Tablet, [facility] #[id number], Partial fill upon patient request if... Start Date: 03/11/23 Status: Ordered PriLOSEC OTC 20 mg oral delayed release tablet 1 tablet = 20 mg, By Mouth, Daily, # 90 tablet, 3 Refills, Maintenance, 03/03/23 7:55:00 EDT, EC Tablet, [facility] #[id number], Partial fill upon patient request if the [...] Primary Care Member Role: PCP Address: Address: [address] [place] [address]- Care Team Related Persons Name: DARWINSOLANGE Address: home [address] [place] [address]
--- OUTSIDE RECORDS SUMMARY | 2024-04-20 09:45 | XMS_ITS | Continuity of Care Document ---
Author Organization [facility] Address [address] [place] [address], [address], [address] [place] [address]- Care Team Providers Care Personal Banker Name Role Phone Kiley Call MD, V Primary Care Physician En[place] [facility] Date(s): 10/21/23 - 11/20/23 [facility] [address] [facility] [address] Floor, [address] [place] [address]- Allergies, Adverse Reactions, Alerts No Known Medication Allergies Medications Mei 12 Hour Allergy 60 mg oral tablet 1 tablet = 60 mg, By Mouth, 2 times a day, # 60 tablet, 6 Refills, Maintenance, 08/27/23 11:28:00 EDT, [facility][id number], Partial fill upon patient request if the [...] 0 Refills, Maintenance, 06/23/23 11:54:00 EST, Gel, [facility][id number], Partial fill upon patient request if the [...] Gm, 3 Refills, Maintenance, 03/02/23 8:07:00 EDT, [facility] #[id number], Partial fill upon patient request if the [...] Refills, Maintenance, 03/11/23 12:32:00 EDT, DIS Tablet, [facility] #05709, Partial fill upon patient request if... Start Date: 03/11/23 Status: Ordered PriLOSEC OTC 20 mg oral delayed release tablet 1 tablet = 20 mg, By Mouth, Daily, # 90 tablet, 3 Refills, Maintenance, 03/03/23 7:55:00 EDT, EC Tablet, [facility] #[id number], Partial fill upon patient request if the [...] Primary Care Member Role: PCP Address: Address: [address] [place] [address]- Care Team Related Persons Name: SOLANGE GRANADOS Address: home [address] [place] [address]
--- OUTSIDE RECORDS SUMMARY | 2024-04-20 09:45 | XMS_ITS | Continuity of Care Document ---
Author Organization [facility] Address [address] [place] [address]- Care Team Providers Care Ticket Printer Name Role Phone Not on Staff, PCP Primary Care Physician Unavail able Encounter [facility] [place] Date(s): 03/11/23 - 04/10/23 [facility] [address] [place], [place] [address] Allergies, Adverse Reactions, Alerts No [...] Gm, 3 Refills, Maintenance, 03/02/23 8:07:00 EDT, [facility] #[id number], Partial fill upon patient request if the [...] Refills, Maintenance, 03/11/23 12:32:00 EDT, DIS Tablet, [facility] #[id number], Partial fill upon patient request if... Start Date: 03/11/23 Status: Ordered PriLOSEC OTC 20 mg oral delayed release tablet 1 tablet = 20 mg, By Mouth, Daily, # 90 tablet, 3 Refills, Maintenance, 03/03/23 7:55:00 EDT, EC Tablet, [facility] #[id number], Partial fill upon patient request if the [...] Related Persons Name: SOLANGE GRANADOS Address: home [address] [place], [place] [id number]
--- OUTSIDE RECORDS SUMMARY | 2024-04-20 09:45 | XMS_ITS | Continuity of Care Document ---
Author Organization [facility] Address [address] [place] [address]- Care Team Providers Care Door Trimmer Name Role Phone Kiley Call MD, V Primary Care Physician Encounter [facility] [place] [facility] Date(s): 11/29/23 - 12/29/23 [facility] [address] [place], [place] [id number]- [place] Allergies, Adverse Reactions, Alerts No Known Medication Allergies Medications Mei 12 Hour Allergy 60 mg oral tablet 1 tablet = 60 mg, By Mouth, 2 times a day, # 60 tablet, 6 Refills, Maintenance, 08/27/23 11:28:00 EDT, [facility] #[id number], Partial fill upon patient request if the [...] 0 Refills, Maintenance, 06/23/23 11:54:00 EST, Gel, [facility] #[id number], Partial fill upon patient request if the [...] Gm, 3 Refills, Maintenance, 03/02/23 8:07:00 EDT, [facility] #[id number], Partial fill upon patient request if the [...] Refills, Maintenance, 03/11/23 12:32:00 EDT, DIS Tablet, [facility] #[id number], Partial fill upon patient request if... Start Date: 03/11/23 Status: Ordered omeprazole 20 mg oral enteric coated capsule 1 capsule, By Mouth, Daily, # 90 capsule, 3 Refills, Maintenance, 12/29/23 8:37:00 EDT, [facility] #[id number], 152.4, cm, 12/23/23 16:22:00 EDT, Height, 56.1, [...] Personnel Name: Kiley Call MD, V Position: [facility] Physician - Primary Care Member Role: PCP Address: Address: [address] [place] [address]- Care Team Related Persons Name: SOLANGE MEADOWS Address: home [address] [place] [address]
--- OUTSIDE RECORDS SUMMARY | 2024-04-20 09:45 | XMS_ITS | Continuity of Care Document ---
Author Organization [facility] Address [address] [place] [address]- Care Team Providers Care Foot Cutter Name Role Phone Jakub DAVIS, Kiley Dawkins Primary Care Physician Encounter [facility] [place] Date(s): 09/16/23 - 09/23/23 [facility] [address] [place] [address]- Encounter Diagnosis Greater trochanteric pain syndrome of left lower extremity(Discharge Diagnosis) - 09/16/23 Attending Physician: Mikie Gunter MD Referring Physician: Kiley Call MD, V Allergies, Adverse Reactions, Alerts No Known Medication Allergies Medications Mei 12 Hour Allergy 60 mg oral tablet 1 tablet = 60 mg, By Mouth, 2 times a day, # 60 tablet, 6 Refills, Maintenance, 08/27/23 11:28:00 EDT, [facility] #[id number], Partial fill upon patient request if the [...] 0 Refills, Maintenance, 06/23/23 11:54:00 EST, Gel, [facility] #[id number], Partial fill upon patient request if the prescription is for a schedule II opioid drug., 153, cm, 01/28/23 15:40:00 EDT... Start Date: 06/23/23 Status: Ordered Flonase Allergy Relief 50 mcg/inh nasal spray 1 sprays, Nares, Both, 2 times a day, PRN Congestion, # 16 Gm, 3 Refills, Maintenance, 03/02/23 8:07:00 EDT, [facility] #[id number], Partial fill upon patient request if the [...] Refills, Maintenance, 03/11/23 12:32:00 EDT, DIS Tablet, [facility] #[id number], Partial fill upon patient request if... Start Date: 03/11/23 Status: Ordered PriLOSEC OTC 20 mg oral delayed release tablet 1 tablet = 20 mg, By Mouth, Daily, # 90 tablet, 3 Refills, Maintenance, 03/03/23 7:55:00 EDT, EC Tablet, [facility] #[id number], Partial fill upon patient request if the [...] Service Informant Greater trochanteric pain syndrome of left lower extremity Discharge Diagnosis 09/16/23 Vital Signs Most recent to oldest [Reference Range]: 1 Height 153 cm (09/16/23 4:21 PM) Weight 56.8 kg (09/16/23 4:21 PM) Oxygen Saturation [94-100 %] 99 % (09/16/23 4:21 PM) Pulse Rate [55-90 bpm] 73 bpm (09/16/23 4:21 PM) Body Mass Index [18.5-24.99 kg/m2] 24.26 kg/m2 (09/16/23 4:21 PM) Blood Pressure [90-138/55-84 mm Hg] 117/ 69mm Hg (09/16/23 4:21 PM) Mode of Delivery (Oxygen) Room air (09/16/23 4:21 PM) Blood pressure sites Arm, left (09/16/23 4:21 PM) Weight Obtained Via Bed scale (09/16/23 4:21 PM) Social History Social History Type Response Smoking Status Never (less than 100 in lifetime) entered on: 01/28/23 Sex Patient Care team information Care Team Personnel Name: Jakub DAVIS, Kiley Dawkins Position: [facility] Physician - Primary Care Member Role: PCP Address: Address: [address] [place] [address]- Care Team Related Persons Name: SOLANGE GRANADOS Address: home [address] [place] [address]
--- OUTSIDE RECORDS SUMMARY | 2024-04-20 09:45 | XMS_ITS | Continuity of Care Document ---
Author Organization [facility] Address [address] [place] [address]- Care Team Providers Care Wireline Operator Name Role Phone Kiley Call MD, V Primary Care [id number]20[facility] [address] [place], [place] [address] Allergies, Adverse Reactions, Alerts No Known Medication Allergies Medications Mei 12 Hour Allergy 60 mg oral tablet 1 tablet = 60 mg, By Mouth, 2 times a day, # 60 tablet, 6 Refills, Maintenance, 08/27/23 11:28:00 EDT, [facility] #[id number], Partial fill upon patient request if the [...] 0 Refills, Maintenance, 06/23/23 11:54:00 EST, Gel, [facility] #[id number], Partial fill upon patient request if the [...] Gm, 3 Refills, Maintenance, 03/02/23 8:07:00 EDT, [facility] #[id number], Partial fill upon patient request if the [...] Refills, Maintenance, 03/11/23 12:32:00 EDT, DIS Tablet, [facility] #[id number], Partial fill upon patient request if... Start Date: 03/11/23 Status: Ordered PriLOSEC OTC 20 mg oral delayed release tablet 1 tablet = 20 mg, By Mouth, Daily, # 90 tablet, 3 Refills, Maintenance, 03/03/23 7:55:00 EDT, EC Tablet, [facility] #[id number], Partial fill upon patient request if the [...] Primary Care Member Role: PCP Address: Address: [address] [place] [address]- Care Team Related Persons Name: SOLANGE GRANADOS Address: [address] [place] [address]
--- OUTSIDE RECORDS SUMMARY | 2024-04-20 09:45 | XMS_ITS | Continuity of Care Document ---
Author Organization [facility] Address [address] [place] [address]- Care Team Providers Care Repair Department Supervisor Name Role Phone Jakub DAVIS, Kiley Dawkins Primary Care Physician Encounter [facility] Date(s): 08/27/23 - 09/03/23 [facility] [address] [place] [address]- Encounter Diagnosis Schatzki's ring of distal esophagus(Discharge Diagnosis) - 08/27/23 Snoring(Discharge Diagnosis) - 08/27/23 Other specified arthritis, left hand(Discharge Diagnosis) - 08/27/23 Allergic rhinitis with postnasal drip(Discharge Diagnosis) - 08/27/23 Attending Physician: Kiley Call MD, V Allergies, Adverse Reactions, Alerts No Known Medication Allergies Medications Mei 12 Hour Allergy 60 mg oral tablet 1 tablet = 60 mg, By Mouth, 2 times a day, # 60 tablet, 6 Refills, Maintenance, 08/27/23 11:28:00 EDT, [facility] #[id number], Partial fill upon patient request if the [...] 0 Refills, Maintenance, 06/23/23 11:54:00 EST, Gel, [facility] #[id number], Partial fill upon patient request if the prescription is for a schedule II opioid drug., 153, cm, 01/28/23 15:40:00 EDT... Start Date: 06/23/23 Status: Ordered Flonase Allergy Relief 50 mcg/inh nasal spray 1 sprays, Nares, Both, 2 times a day, PRN Congestion, # 16 Gm, 3 Refills, Maintenance, 03/02/23 8:07:00 EDT, [facility] #[id number], Partial fill upon patient request if the [...] Refills, Maintenance, 03/11/23 12:32:00 EDT, DIS Tablet, [facility] #[id number], Partial fill upon patient request if... Start Date: 03/11/23 Status: Ordered PriLOSEC OTC 20 mg oral delayed release tablet 1 tablet = 20 mg, By Mouth, Daily, # 90 tablet, 3 Refills, Maintenance, 03/03/23 7:55:00 EDT, EC Tablet, [facility] #[id number], Partial fill upon patient request if the [...] Diagnosis Diagnosis Type Effective Dates Health Status [facility] Service Informant Schatzki's ring of distal esophagus Discharge Diagnosis 08/27/23 Snoring Discharge Diagnosis 08/27/23 Other specified arthritis, left hand Discharge Diagnosis 08/27/23 Allergic rhinitis with postnasal drip Discharge Diagnosis 08/27/23 Vital Signs Most recent to oldest [Reference Range]: 1 Height 153 cm (08/27/23 11:13 AM) Weight 57.4 kg (08/27/23 11:13 AM) Oxygen Saturation [94-100 %] 98 % (08/27/23 11:13 AM) Pulse Rate [55-90 bpm] 80 bpm (08/27/23 11:13 AM) Body Mass Index [18.5-24.99 kg/m2] 24.52 kg/m2 (08/27/23 11:13 AM) Blood Pressure [90-138/55-84 mm Hg] 109/ 73mm Hg (08/27/23 11:13 AM) Mode of Delivery (Oxygen) Room air (08/27/23 11:13 AM) Blood pressure sites Arm, left (08/27/23 11:13 AM) Weight Obtained Via Standing scale (08/27/23 11:13 AM) Social History Social History Type Response Smoking Status Never (less than 100 in lifetime) entered on: 01/28/23 Sex Patient Care team information Care Team Personnel Name: Jakub DAVIS, Kiley Dawkins Position: S Physician - Primary Care Member Role: PCP Address: Address: [address] [place] [address]- Care Team Related Persons Name: SOLANGE GRANADOS Address: home [address] [place] [address]
--- OUTSIDE RECORDS SUMMARY | 2024-04-20 09:45 | XMS_ITS | Continuity of Care Document ---
Author Organization [facility] Address [address] [place] [address]- Care Team Providers Care Die Sinker Name Role Phone Jakub DAVIS, Kiley Dawkins Primary Care Physician [phone] [id number] Date(s): 10/05/23 - 11/04/[address] [address]- Attending Physician: Marie Mancilla Admitting Physician: AdmMarie valles Referring Physician: Admtr, Ar8 Allergies, Adverse Reactions, Alerts No Known Medication Allergies Medications Mei 12 Hour Allergy 60 mg oral tablet 1 tablet = 60 mg, By Mouth, 2 times a day, # 60 tablet, 6 Refills, Maintenance, 08/27/23 11:28:00 EDT, [facility][id number], Partial fill upon patient request if the [...] 0 Refills, Maintenance, 06/23/23 11:54:00 EST, Gel, [facility] #[id number], Partial fill upon patient request if the [...] Gm, 3 Refills, Maintenance, 03/02/23 8:07:00 EDT, [facility] #[id number], Partial fill upon patient request if the [...] Refills, Maintenance, 03/11/23 12:32:00 EDT, DIS Tablet, [facility] #[id number], Partial fill upon patient request if... Start Date: 03/11/23 Status: Ordered PriLOSEC OTC 20 mg oral delayed release tablet 1 tablet = 20 mg, By Mouth, Daily, # 90 tablet, 3 Refills, Maintenance, 03/03/23 7:55:00 EDT, EC Tablet, [facility] #[id number], Partial fill upon patient request if the [...] Personnel Name: Jakub DAVIS, Kiley Dawkins Position: [facility] Physician - Primary Care Member Role: PCP Address: Address: [address] [place] [address]- Care Team Related Persons Name: SOLANGE GRANADOS Address: home [address] [place] [address]
--- OUTSIDE RECORDS SUMMARY | 2024-04-20 09:45 | XMS_ITS | Continuity of Care Document ---
Author Organization [facility] Address [address] [place] [address]- Care Team Providers Care Crumb Packer Name Role Phone Kiley Call MD, V Primary Care Physician [phone] [place] [facility] [place]s): 07/15/23 - 07/22/23 [facility] [address] [place] [address]- Encounter Diagnosis Greater trochanteric bursitis of left hip(Discharge Diagnosis) - 07/15/23 Attending Physician: Lyric DAVIS, Mikie Winters Referring Physician: Kiley Call MD, V Allergies, [...] 0 Refills, Maintenance, 06/23/23 11:54:00 EST, Gel, [facility] #[id number], Partial fill upon patient request if the prescription is for a schedule II opioid drug., 153, cm, 01/28/23 15:40:00 EDT... Start Date: 06/23/23 Status: Ordered Flonase Allergy Relief 50 mcg/inh nasal spray 1 sprays, Nares, Both, 2 times a day, PRN Congestion, # 16 Gm, 3 Refills, Maintenance, 03/02/23 8:07:00 EDT, [facility] #[id number], Partial fill upon patient request if the [...] Refills, Maintenance, 03/11/23 12:32:00 EDT, DIS Tablet, [facility] #[id number], Partial fill upon patient request if... Start Date: 03/11/23 Status: Ordered PriLOSEC OTC 20 mg oral delayed release tablet 1 tablet = 20 mg, By Mouth, Daily, # 90 tablet, 3 Refills, Maintenance, 03/03/23 7:55:00 EDT, EC Tablet, [facility] #[id number], Partial fill upon patient request if the [...] Health Status Clinical Service Informant Greater trochanteric bursitis of left hip Discharge Diagnosis 07/15/23 Procedures Procedure Date Related Diagnosis Body Site Status Partial hysterectomy 1 Co mpleted Vital Signs Most recent to oldest [Reference Range]: 1 Height 153 cm (07/15/23 1:40 PM) Weight 56.2 kg (07/15/23 1:40 PM) Oxygen Saturation [94-100 %] 99 % (07/15/23 1:40 PM) Pulse Rate [55-90 bpm] 93 bpm *H* (07/15/23 1:40 PM) Body Mass Index [18.5-24.99 kg/m2] 24.01 kg/m2 (07/15/23 1:40 PM) Blood Pressure [90-138/55-84 mm Hg] 100/ 70mm Hg (07/15/23 1:40 PM) Mode of Delivery (Oxygen) Room air (07/15/23 1:40 PM) Blood pressure sites Arm, right (07/15/23 1:40 PM) Social History Social History Type Response Smoking Status Never (less than 100 in lifetime) entered on: 01/28/23 Sex Patient Care team information Care Team Personnel Name: Jakub DAVIS, Kiley Dawkins Position: [facility] Physician - Primary Care Member Role: PCP Address: Address: [address] [place] [address]- Care Team Related Persons Name: DARWINSOLANGE Address: home [address] [place] [address]
--- OUTSIDE RECORDS SUMMARY | 2024-04-20 09:45 | XMS_ITS | Continuity of Care Document ---
Author Organization [facility] Address [address] [place] [address]- Care Team Providers Care Specimen Processor Name Role Phone Kiley Call MD, V Primary Care Physician [phone] Encounter [facility] [place] Date(s): 07/24/23 - 08/23/23 [facility] [address] [place] [address]- Allergies, Adverse Reactions, Alerts No Known Medication Allergies Medications Botox Inj 0 Refills, Maintenance, 01/28/23 15:45:00 EDT, Partial fill upon patient request if the prescription is for a schedule II opioid drug. Start Date: 01/28/23 Status: Ordered diclofenac 1% topical gel 1 application, Topically, 4 times a day, # 100 Gm, 0 Refills, Maintenance, 06/23/23 11:54:00 EST, Gel, [facility] #[id number], Partial fill upon patient request if the prescription is for a schedule II opioid drug., 153, cm, 01/28/23 15:40:00 EDT... Start Date: 06/23/23 Status: Ordered Flonase Allergy Relief 50 mcg/inh nasal spray 1 sprays, Nares, Both, 2 times a day, PRN Congestion, # 16 Gm, 3 Refills, Maintenance, 03/02/23 8:07:00 EDT, [facility] #[id number], Partial fill upon patient request if the [...] Refills, Maintenance, 03/11/23 12:32:00 EDT, DIS Tablet, [facility] #[id number], Partial fill upon patient request if... Start Date: 03/11/23 Status: Ordered PriLOSEC OTC 20 mg oral delayed release tablet 1 tablet = 20 mg, By Mouth, Daily, # 90 tablet, 3 Refills, Maintenance, 03/03/23 7:55:00 EDT, EC Tablet, [facility] #[id number], Partial fill upon patient request if the [...] Personnel Name: Jakub DAVIS, Kiley Dawkins Position: [facility] Physician - Primary Care Member Role: PCP Address: Address: [address] [place] [address]- Care Team Related Persons Name: SOLANGE GRANADOS Address: home [address] [place] [address]
--- OUTSIDE RECORDS SUMMARY | 2024-04-20 09:45 | XMS_ITS | Continuity of Care Document ---
Author Organization [facility] Address [address] [place] [address]- Care Team Providers Care Clerk Carrier Name Role Phone Jakub DAVIS, Kiley Dawkins Primary Care Physician En[place] [facility] Date(s): 09/03/23 - 10/03/23 [facility] [address] [place] [address]- [place] Allergies, Adverse Reactions, Alerts No Known Medication Allergies Medications Mei 12 Hour Allergy 60 mg oral tablet 1 tablet = 60 mg, By Mouth, 2 times a day, # 60 tablet, 6 Refills, Maintenance, 08/27/23 11:28:00 EDT, [facility] #[id number], Partial fill upon patient request if the [...] 0 Refills, Maintenance, 06/23/23 11:54:00 EST, Gel, [facility] #[id number], Partial fill upon patient request if the prescription is for a schedule II opioid drug., 153, cm, 01/28/23 15:40:00 EDT... Start Date: 06/23/23 Status: Ordered Flonase Allergy Relief 50 mcg/inh nasal spray 1 sprays, Nares, Both, 2 times a day, PRN Congestion, # 16 Gm, 3 Refills, Maintenance, 03/02/23 8:07:00 EDT, [facility] #[id number], Partial fill upon patient request if the [...] Refills, Maintenance, 03/11/23 12:32:00 EDT, DIS Tablet, [facility] #[id number], Partial fill upon patient request if... Start Date: 03/11/23 Status: Ordered PriLOSEC OTC 20 mg oral delayed release tablet 1 tablet = 20 mg, By Mouth, Daily, # 90 tablet, 3 Refills, Maintenance, 03/03/23 7:55:00 EDT, EC Tablet, [facility] #[id number], Partial fill upon patient request if the [...] Personnel Name: Jakub DAVIS, Kiley Dawkins Position: [facility] Physician - Primary Care Member Role: PCP Address: Address: [address] [place] [address] Care Team Related Persons Name: SOLANGE GRANADOS Address: home [address] [place] [address]
--- OUTSIDE RECORDS SUMMARY | 2024-04-20 09:45 | XMS_ITS | Continuity of Care Document ---
Author Organization [facility] Address [address] [place] [address]- Care Team Providers Care Newspaper Manager Name Role Phone Kiley Call MD, V Primary Care Physician Encounter [facility] Date(s): 10/09/23 - 11/08/23 [facility] [address] [place], [place] [address] Allergies, Adverse Reactions, Alerts No Known Medication Allergies Medications Mei 12 Hour Allergy 60 mg oral tablet 1 tablet = 60 mg, By Mouth, 2 times a day, # 60 tablet, 6 Refills, Maintenance, 08/27/23 11:28:00 EDT, [facility] #[id number], Partial fill upon patient request if the [...] 0 Refills, Maintenance, 06/23/23 11:54:00 EST, Gel, [facility] #[id number], Partial fill upon patient request if the [...] Gm, 3 Refills, Maintenance, 03/02/23 8:07:00 EDT, [facility] #[id number], Partial fill upon patient request if the [...] Refills, Maintenance, 03/11/23 12:32:00 EDT, DIS Tablet, [facility] #[id number], Partial fill upon patient request if... Start Date: 03/11/23 Status: Ordered PriLOSEC OTC 20 mg oral delayed release tablet 1 tablet = 20 mg, By Mouth, Daily, # 90 tablet, 3 Refills, Maintenance, 03/03/23 7:55:00 EDT, EC Tablet, [facility] #[id number], Partial fill upon patient request if the [...] Personnel Name: Jakub DAVIS, Kiley Dawkins Position: [facility] Physician - Primary Care Member Role: PCP Address: Address: [address] [place] [address]- Care Team Related Persons Name: SOLANGE GRANADOS Address: home [address] [place] [address]
--- OUTSIDE RECORDS SUMMARY | 2024-04-20 09:45 | XMS_ITS | Continuity of Care Document ---
Author Organization [facility] Address [address] [place] [address]- Care Team Providers Care Stock Holder Name Role Phone Kiley Call MD, V Primary Care Physician [phone] Encounter [facility] R [id number] Date(s): 10/16/23 - 11/15/23 [facility] [address] [place], [place] [address] Allergies, Adverse Reactions, Alerts No Known Medication Allergies Medications Mei 12 Hour Allergy 60 mg oral tablet 1 tablet = 60 mg, By Mouth, 2 times a day, # 60 tablet, 6 Refills, Maintenance, 08/27/23 11:28:00 EDT, [facility] #[id number], Partial fill upon patient request if the [...] 0 Refills, Maintenance, 06/23/23 11:54:00 EST, Gel, [facility] #[id number], Partial fill upon patient request if the [...] Gm, 3 Refills, Maintenance, 03/02/23 8:07:00 EDT, [facility] #[id number], Partial fill upon patient request if the [...] Refills, Maintenance, 03/11/23 12:32:00 EDT, DIS Tablet, [facility] #[id number], Partial fill upon patient request if... Start Date: 03/11/23 Status: Ordered PriLOSEC OTC 20 mg oral delayed release tablet 1 tablet = 20 mg, By Mouth, Daily, # 90 tablet, 3 Refills, Maintenance, 03/03/23 7:55:00 EDT, EC Tablet, [facility] #[id number], Partial fill upon patient request if the [...] Primary Care Member Role: PCP Address: Address: [address] [place] [address]- Care Team Related Persons Name: SOLANGE GRANADOS Address: home [address] [place] [address]
--- OUTSIDE RECORDS SUMMARY | 2024-04-20 09:45 | XMS_ITS | Continuity of Care Document ---
Author Organization [facility] Address [address] [place] [address]- Care Team Providers Care Slot Machine Mechanic Name Role Phone Not on Staff, PCP Primary Care Physician Unavail able [place] [facility] [place]): 02/26/23 - 03/28/23 [facility] [address] [place], [place] [address] Allergies, Adverse Reactions, Alerts [...] Gm, 3 Refills, Maintenance, 03/02/23 8:07:00 EDT, [facility] #[id number], Partial fill upon patient request if the [...] Refills, Maintenance, 03/11/23 12:32:00 EDT, DIS Tablet, [facility] #[id number], Partial fill upon patient request if... Start Date: 03/11/23 Status: Ordered PriLOSEC OTC 20 mg oral delayed release tablet 1 tablet = 20 mg, By Mouth, Daily, # 90 tablet, 3 Refills, Maintenance, 03/03/23 7:55:00 EDT, EC Tablet, [facility] #[id number], Partial fill upon patient request if the [...] Personnel Name: Not on Staff, PCP Position: [facility] Physician (General Medicine) Member Role: PCP Care Team Related Persons Name: DARWINSOLANGE Address: home [address] [place] [address]
--- OUTSIDE RECORDS SUMMARY | 2024-04-20 09:45 | XMS_ITS | Continuity of Care Document ---
Author Organization [facility] Address [address] [place] [address]- Care Team Providers Care Track Inspecting Supervisor Name Role Phone Kiley Call MD, V Primary Care Physician [phone] Encounter [facility] Date(s): 09/14/23 - 10/14/23 [facility] [address] [place], [place] [address] Allergies, Adverse Reactions, Alerts No Known Medication Allergies Medications Mei 12 Hour Allergy 60 mg oral tablet 1 tablet = 60 mg, By Mouth, 2 times a day, # 60 tablet, 6 Refills, Maintenance, 08/27/23 11:28:00 EDT, [facility] #[id number], Partial fill upon patient request if the [...] 0 Refills, Maintenance, 06/23/23 11:54:00 EST, Gel, [facility] #[id number], Partial fill upon patient request if the [...] Gm, 3 Refills, Maintenance, 03/02/23 8:07:00 EDT, [facility] #[id number], Partial fill upon patient request if the [...] Refills, Maintenance, 03/11/23 12:32:00 EDT, DIS Tablet, [facility] #[id number], Partial fill upon patient request if... Start Date: 03/11/23 Status: Ordered PriLOSEC OTC 20 mg oral delayed release tablet 1 tablet = 20 mg, By Mouth, Daily, # 90 tablet, 3 Refills, Maintenance, 03/03/23 7:55:00 EDT, EC Tablet, [facility] #[id number], Partial fill upon patient request if the [...] Care Member Role: PCP Address: Address: [address] [place] [address]- Care Team Related Persons Name: SOLANGE GRANADOS Address: home [address] [place] [address]
--- OUTSIDE RECORDS SUMMARY | 2024-04-20 09:45 | XMS_ITS | Continuity of Care Document ---
Author Organization [facility] Address [address] [place] [address]- Care Team Providers Care Attorney Recruiter Name Role Phone Kiley Call MD, V Primary Care Physician [id number] Date(s): 02/26/24 - 03/27/24 [facility] [address] [place], [place] [address] Allergies, Adverse Reactions, Alerts No Known Medication Allergies Medications Mei 12 Hour Allergy 60 mg oral tablet 1 tablet = 60 mg, By Mouth, 2 times a day, # 60 tablet, 6 Refills, Maintenance, 08/27/23 11:28:00 EDT, [facility] #[id number], Partial fill upon patient request if the [...] 0 Refills, Maintenance, 06/23/23 11:54:00 EST, Gel, [facility] #[id number], Partial fill upon patient request if the [...] Gm, 3 Refills, Maintenance, 03/02/23 8:07:00 EDT, [facility] #[id number], Partial fill upon patient request if the [...] Refills, Maintenance, 02/16/24 11:43:00 EDT, DIS Tablet, [facility] #[id number], Partial fill upon patient request if... Start Date: 02/16/24 Status: Ordered omeprazole 20 mg oral enteric coated capsule 1 capsule, By Mouth, Daily, # 90 capsule, 3 Refills, Maintenance, 12/29/23 8:37:00 EDT, [facility] #[id number], 152.4, cm, 12/23/23 16:22:00 EDT, Height, 56.1, [...] Personnel Name: Kiley Call MD, V Position: [facility] Physician - Primary Care Member Role: PCP Address: Address: [address] [place] [address]- Care Team Related Persons Name: SOLANGE MEADOWS Address: home [address] [place] [address]
--- OUTSIDE RECORDS SUMMARY | 2024-04-20 09:45 | XMS_ITS | Continuity of Care Document ---
Author Organization [facility] Kimberly yury Address [address] [place] [address] [address] [place] [address]- Care Team Providers Care Transit Mixer Driver Name Role Phone Kiley Call MD, V Primary Care Physician [place] [facility] [place]24 - 03/28/24 [facility] Surgery [address] [place] [address]- Attending Physician: Rickie Mccarty MD Referring Physician: Jimmy HOBSON, Johanna Caldwell Allergies, Adverse Reactions, Alerts No Known Medication Allergies Medications Mei 12 Hour Allergy 60 mg oral tablet 1 tablet = 60 mg, By Mouth, 2 times a day, # 60 tablet, 6 Refills, Maintenance, 08/27/23 11:28:00 EDT, [facility] #[id number], Partial fill upon patient request if the [...] 0 Refills, Maintenance, 06/23/23 11:54:00 EST, Gel, [facility] #[id number], Partial fill upon patient request if the [...] Gm, 3 Refills, Maintenance, 03/02/23 8:07:00 EDT, [facility] #[id number], Partial fill upon patient request if the [...] Refills, Maintenance, 02/16/24 11:43:00 EDT, DIS Tablet, [facility] #[id number], Partial fill upon patient request if... Start Date: 02/16/24 Status: Ordered omeprazole 20 mg oral enteric coated capsule 1 capsule, By Mouth, Daily, # 90 capsule, 3 Refills, Maintenance, 12/29/23 8:37:00 EDT, [facility] #[id number], 152.4, cm, 12/23/23 16:22:00 EDT, Height, 56.1, [...] distal esophagus Confirmed Active Snoring Confirmed Active Vital Signs Most recent to oldest [Reference Range]: 1 Height 152.4 cm (03/21/24 9:45 AM) Weight 56.1 kg (03/21/24 9:45 AM) Body Mass Index [18.5-24.99 kg/m2] 24.15 kg/m2 (03/21/24 9:45 AM) Social History Social History Type Response Smoking Status Never (less than 100 in lifetime) entered on: 01/28/23 Sex Patient Care team information Care Team Personnel Name: Jakub DAVIS, Kiley Dawkins Position: [facility] Physician - Primary Care Member Role: PCP Address: Address: [address] [place] [address]- Care Team Related Persons Name: SOLANGE MEADOWS Address: home [address] [place] [address]
--- OUTSIDE RECORDS SUMMARY | 2024-04-20 09:45 | XMS_ITS | Continuity of Care Document ---
Author Organization [facility] Address [address] [place] [address]- Care Team Providers Care Employee Service Officer Name Role Phone Not on Staff, PCP Primary Care Physician Unavail able Encounter [facility] Date(s): 02/26/23 - 03/28/23 [facility] [address] [place], [place] [address] Allergies, Adverse Reactions, Alerts No Known [...] Gm, 3 Refills, Maintenance, 03/02/23 8:07:00 EDT, [email or web address] #[id number], Partial fill upon patient request if the [...] Refills, Maintenance, 03/11/23 12:32:00 EDT, DIS Tablet, [email or web address] #[id number], Partial fill upon patient request if... Start Date: 03/11/23 Status: Ordered PriLOSEC OTC 20 mg oral delayed release tablet 1 tablet = 20 mg, By Mouth, Daily, # 90 tablet, 3 Refills, Maintenance, 03/03/23 7:55:00 EDT, EC Tablet, [email or web address] #[id number], Partial fill upon patient request if the [...] Personnel Name: Not on Staff, PCP Position: [facility] Physician (General Medicine) Member Role: PCP Care Team Related Persons Name: DARWINSOLANGE Address: home [address] [place] [address]
--- OUTSIDE RECORDS SUMMARY | 2024-04-20 09:45 | XMS_ITS | Continuity of Care Document ---
Author Organization [facility] Address [address] [place] [address]- Care Team Providers Care Departmental Secretary Name Role Phone Kiley Call MD, V Primary Care Physician [phone] Encounter [facility] [place] Date(s): 07/15/23 - 08/14/23 [facility] [address] [place] [address]- Allergies, Adverse Reactions, Alerts No Known Medication Allergies Medications Botox Inj 0 Refills, Maintenance, 01/28/23 15:45:00 EDT, Partial fill upon patient request if the prescription is for a schedule II opioid drug. Start Date: 01/28/23 Status: Ordered diclofenac 1% topical gel 1 application, Topically, 4 times a day, # 100 Gm, 0 Refills, Maintenance, 06/23/23 11:54:00 EST, Gel, [facility] #[id number], Partial fill upon patient request if the prescription is for a schedule II opioid drug., 153, cm, 01/28/23 15:40:00 EDT... Start Date: 06/23/23 Status: Ordered Flonase Allergy Relief 50 mcg/inh nasal spray 1 sprays, Nares, Both, 2 times a day, PRN Congestion, # 16 Gm, 3 Refills, Maintenance, 03/02/23 8:07:00 EDT, [facility] #[id number], Partial fill upon patient request if the [...] Refills, Maintenance, 03/11/23 12:32:00 EDT, DIS Tablet, [facility] #[id number], Partial fill upon patient request if... Start Date: 03/11/23 Status: Ordered PriLOSEC OTC 20 mg oral delayed release tablet 1 tablet = 20 mg, By Mouth, Daily, # 90 tablet, 3 Refills, Maintenance, 03/03/23 7:55:00 EDT, EC Tablet, [facility] #[id number], Partial fill upon patient request if the [...] Personnel Name: Jakub DAVIS, Kiley Dawkins Position: [facility] Physician - Primary Care Member Role: PCP Address: Address: [address] [place] [address]- Care Team Related Persons Name: SOLANGE GRANADOS Address: home [address] [place] [address]
--- OUTSIDE RECORDS SUMMARY | 2024-04-20 09:45 | XMS_ITS | Continuity of Care Document ---
Author Organization [facility] Address [address] [place] [address]- Care Team Providers Care Tip Cutter Name Role Phone Jakub DAVIS, Kiley Dawkins Primary Care Physician [phone] [place] [facility] [place]03[place]23 [place] 10/03/23 [facility] [address] [place] [address] Allergies, Adverse Reactions, Alerts No Known Medication Allergies Medications Mei 12 Hour Allergy 60 mg oral tablet 1 tablet = 60 mg, By Mouth, 2 times a day, # 60 tablet, 6 Refills, Maintenance, 08/27/23 11:28:00 EDT, [id number], Partial fill upon patient request if the [...] 0 Refills, Maintenance, 06/23/23 11:54:00 EST, Gel, [facility][id number], Partial fill upon patient request if the prescription is for a schedule II opioid drug., 153, cm, 01/28/23 15:40:00 EDT... Start Date: 06/23/23 Status: Ordered Flonase Allergy Relief 50 mcg/inh nasal spray 1 sprays, Nares, Both, 2 times a day, PRN Congestion, # 16 Gm, 3 Refills, Maintenance, 03/02/23 8:07:00 EDT, [facility] #[id number], Partial fill upon patient request if the [...] Refills, Maintenance, 03/11/23 12:32:00 EDT, DIS Tablet, [facility] #[id number], Partial fill upon patient request if... Start Date: 03/11/23 Status: Ordered PriLOSEC OTC 20 mg oral delayed release tablet 1 tablet = 20 mg, By Mouth, Daily, # 90 tablet, 3 Refills, Maintenance, 03/03/23 7:55:00 EDT, EC Tablet, [facility] #[id number], Partial fill upon patient request if the [...] Personnel Name: Kiley Call MD, V Position: [facility] Physician - Primary Care Member Role: PCP Address: Address: [address] [place] [address]- Care Team Related Persons Name: SOLANGE GRANADOS Address: home [address] [place] [address]
--- OUTSIDE RECORDS SUMMARY | 2024-04-20 09:45 | XMS_ITS | Continuity of Care Document ---
Author Organization [facility] Address [address] [facility], [address] d Floor, [address] [place] [address]- Care Team Providers Care Telegraph Mechanic Name Role Phone Kiley Call MD, V Primary Care Physician Encounter [facility] [place] [place] Date(s): 06/23/23 - 07/23/23 [facility] [address], [address], [address] [place] [address]- Allergies, Adverse Reactions, Alerts No Known Medication Allergies Medications Botox Inj 0 Refills, Maintenance, 01/28/23 15:45:00 EDT, Partial fill upon patient request if the prescription is for a schedule II opioid drug. Start Date: 01/28/23 Status: Ordered diclofenac 1% topical gel 1 application, Topically, 4 times a day, # 100 Gm, 0 Refills, Maintenance, 06/23/23 11:54:00 EST, Gel, [facility] #[id number], Partial fill upon patient request if the prescription is for a schedule II opioid drug., 153, cm, 01/28/23 15:40:00 EDT... Start Date: 06/23/23 Status: Ordered Flonase Allergy Relief 50 mcg/inh nasal spray 1 sprays, Nares, Both, 2 times a day, PRN Congestion, # 16 Gm, 3 Refills, Maintenance, 03/02/23 8:07:00 EDT, [facility] #[id number], Partial fill upon patient request if the [...] Refills, Maintenance, 03/11/23 12:32:00 EDT, DIS Tablet, [facility] #[id number], Partial fill upon patient request if... Start Date: 03/11/23 Status: Ordered PriLOSEC OTC 20 mg oral delayed release tablet 1 tablet = 20 mg, By Mouth, Daily, # 90 tablet, 3 Refills, Maintenance, 03/03/23 7:55:00 EDT, EC Tablet, [facility] #[id number], Partial fill upon patient request if the [...] Personnel Name: Jakub DAVIS, Kiley Dawkins Position: [facility] Physician - Primary Care Member Role: PCP Address: Address: [address] [place] [address]- Care Team Related Persons Name: SOLANGE GRANADOS Address: home [address] [place], [place] [id number]
--- OUTSIDE RECORDS SUMMARY | 2024-04-20 09:45 | XMS_ITS | Continuity of Care Document ---
Author Organization [facility] Address [address] [place] [address]- Care Team Providers Care Video Production Specialist Name Role Phone Jakub DAVIS, Kiley Dawkins Primary Care Physician En[place] [facility] [place] Date(s): 12/23/23 - 12/30/23 [facility] [address] [place] [address]- Encounter Diagnosis Greater trochanteric pain syndrome of right lower extremity(Discharge Diagnosis) - 12/23/23 Attending Physician: Mikie Gunter MD Referring Physician: Kiley Call MD, V Allergies, Adverse Reactions, Alerts No Known Medication Allergies Medications Mei 12 Hour Allergy 60 mg oral tablet 1 tablet = 60 mg, By Mouth, 2 times a day, # 60 tablet, 6 Refills, Maintenance, 08/27/23 11:28:00 EDT, [facility] #[id number], Partial fill upon patient request if the [...] 0 Refills, Maintenance, 06/23/23 11:54:00 EST, Gel, [facility] #[id number], Partial fill upon patient request if the [...] Gm, 3 Refills, Maintenance, 03/02/23 8:07:00 EDT, [facility] #[id number], Partial fill upon patient request if the [...] Refills, Maintenance, 03/11/23 12:32:00 EDT, DIS Tablet, [facility] #[id number], Partial fill upon patient request if... Start Date: 03/11/23 Status: Ordered omeprazole 20 mg oral enteric coated capsule 1 capsule, By Mouth, Daily, # 90 capsule, 3 Refills, Maintenance, 12/29/23 8:37:00 EDT, [facility] #[id number], 152.4, cm, 12/23/23 16:22:00 EDT, Height, 56.1, [...] syndrome of right lower extremity Discharge Diagnosis 12/23/23 Vital Signs Most recent to oldest [Reference Range]: 1 Height 152.4 cm (12/23/23 4:22 PM) Weight 55.4 kg (12/23/23 4:22 PM) Oxygen Saturation [94-100 %] 99 % (12/23/23 4:22 PM) Pulse Rate [55-90 bpm] 92 bpm *H* (12/23/23 4:22 PM) Body Mass Index [18.5-24.99 kg/m2] 23.85 kg/m2 (12/23/23 4:22 PM) Blood Pressure [90-138/55-84 mm Hg] 118/ 75mm Hg (12/23/23 4:22 PM) Social History Social History Type Response Smoking Status Never (less than 100 in lifetime) entered on: 01/28/23 Sex Patient Care team information Care Team Personnel Name: Kiley Call MD, V Position: [facility] Physician - Primary Care Member Role: PCP Address: Address: [address] [place] [address]- Care Team Related Persons Name: SOLANGE MEADOWS Address: home [address] [place] [address]
--- OUTSIDE RECORDS SUMMARY | 2024-04-20 09:45 | XMS_ITS | Continuity of Care Document ---
Author Organization [facility] Address [address] [place] [address]- Care Team Providers Care Rn Medicare Name Role Phone Jakub DAVIS, Kiley Dawkins Primary Care Physician Encounter [facility] Date(s): 09/03/23 - 10/03/23 [facility] [address] [place], [place] [phone]- [place] Allergies, Adverse Reactions, Alerts No Known Medication Allergies Medications Mei 12 Hour Allergy 60 mg oral tablet 1 tablet = 60 mg, By Mouth, 2 times a day, # 60 tablet, 6 Refills, Maintenance, 08/27/23 11:28:00 EDT, [facility] #[id number], Partial fill upon patient request if the [...] 0 Refills, Maintenance, 06/23/23 11:54:00 EST, Gel, [facility] #[id number], Partial fill upon patient request if the prescription is for a schedule II opioid drug., 153, cm, 01/28/23 15:40:00 EDT... Start Date: 06/23/23 Status: Ordered Flonase Allergy Relief 50 mcg/inh nasal spray 1 sprays, Nares, Both, 2 times a day, PRN Congestion, # 16 Gm, 3 Refills, Maintenance, 03/02/23 8:07:00 EDT, [facility] #[id number], Partial fill upon patient request if the [...] Refills, Maintenance, 03/11/23 12:32:00 EDT, DIS Tablet, [facility] #[id number], Partial fill upon patient request if... Start Date: 03/11/23 Status: Ordered PriLOSEC OTC 20 mg oral delayed release tablet 1 tablet = 20 mg, By Mouth, Daily, # 90 tablet, 3 Refills, Maintenance, 03/03/23 7:55:00 EDT, EC Tablet, [facility] #[id number], Partial fill upon patient request if the [...] Jakub DAVIS, Kiley Dawkins Position: [facility] Physician - Primary Care Member Role: PCP Address: Address: [address] [place] [id number] Care Team Related Persons Name: SOLANGE GRANADOS Address: home [address] [place] [address]
--- OUTSIDE RECORDS SUMMARY | 2024-04-20 09:45 | XMS_ITS | Continuity of Care Document ---
Author Organization [facility] Address [address] [place] [address]- Care Team Providers Care Paint Coating Machine Operator Name Role Phone Kiley Call MD, V Primary Care Physician Encounter [id number] Date(s): 10/06/23 - 10/06/23 [facility] [address] [place], [place] [address] Allergies, Adverse Reactions, Alerts No Known Medication Allergies Medications Mei 12 Hour Allergy 60 mg oral tablet 1 tablet = 60 mg, By Mouth, 2 times a day, # 60 tablet, 6 Refills, Maintenance, 08/27/23 11:28:00 EDT, [facility] #[id number], Partial fill upon patient request if the [...] 0 Refills, Maintenance, 06/23/23 11:54:00 EST, Gel, [facility] #[id number], Partial fill upon patient request if the [...] Gm, 3 Refills, Maintenance, 03/02/23 8:07:00 EDT, [facility] #[id number], Partial fill upon patient request if the [...] Refills, Maintenance, 03/11/23 12:32:00 EDT, DIS Tablet, [facility] #[id number], Partial fill upon patient request if... Start Date: 03/11/23 Status: Ordered PriLOSEC OTC 20 mg oral delayed release tablet 1 tablet = 20 mg, By Mouth, Daily, # 90 tablet, 3 Refills, Maintenance, 03/03/23 7:55:00 EDT, EC Tablet, [facility] #[id number], Partial fill upon patient request if the [...] Personnel Name: Jakub DAVIS, Kiley Dawkins Position: [facility] Physician - Primary Care Member Role: PCP Address: Address: [address] [place] [address]- Care Team Related Persons Name: DARWINSOLANGE Address: home [address] [place] [address]
--- OUTSIDE RECORDS SUMMARY | 2024-04-20 09:46 | XMS_ITS | Continuity of Care Document ---
Author Organization [facility] Address [address] [place] [address]- Care Team Providers Care Application Spec Name Role Phone Not on Staff, PCP Primary Care Physician Unavail able Encounter [facility] Date(s): 02/26/23 - 03/28/23 [facility] [address] [place], [place] [address] Allergies, Adverse Reactions, Alerts No Known [...] Gm, 3 Refills, Maintenance, 03/02/23 8:07:00 EDT, [facility] #[id number], Partial fill upon patient request if the [...] Refills, Maintenance, 03/11/23 12:32:00 EDT, DIS Tablet, [facility] #[id number], Partial fill upon patient request if... Start Date: 03/11/23 Status: Ordered PriLOSEC OTC 20 mg oral delayed release tablet 1 tablet = 20 mg, By Mouth, Daily, # 90 tablet, 3 Refills, Maintenance, 03/03/23 7:55:00 EDT, EC Tablet, [facility] #[id number], Partial fill upon patient request if the [...] Personnel Name: Not on Staff, PCP Position: [facility] Physician (General Medicine) Member Role: PCP Care Team Related Persons Name: DARWINSOLANGE Address: home [address] [place] [address]
--- OUTSIDE RECORDS SUMMARY | 2024-04-20 09:46 | XMS_ITS | Continuity of Care Document ---
Author Organization [facility] Address [address] [address]- Care Team Providers Care Media Clerk Name Role Phone Kiley Call MD, V Primary Care Physician [id number] - 03/02/24 [facility] [address] [place], [place] [address] Allergies, Adverse Reactions, Alerts No Known Medication Allergies Medications Mei 12 Hour Allergy 60 mg oral tablet 1 tablet = 60 mg, By Mouth, 2 times a day, # 60 tablet, 6 Refills, Maintenance, 08/27/23 11:28:00 EDT, [facility] #[id number], Partial fill upon patient request if the [...] 0 Refills, Maintenance, 06/23/23 11:54:00 EST, Gel, [facility] #[id number], Partial fill upon patient request if the [...] Gm, 3 Refills, Maintenance, 03/02/23 8:07:00 EDT, [facility] #[id number], Partial fill upon patient request if the [...] Refills, Maintenance, 02/16/24 11:43:00 EDT, DIS Tablet, [facility] #[id number], Partial fill upon patient request if... Start Date: 02/16/24 Status: Ordered omeprazole 20 mg oral enteric coated capsule 1 capsule, By Mouth, Daily, # 90 capsule, 3 Refills, Maintenance, 12/29/23 8:37:00 EDT, [facility] #[id number], 152.4, cm, 12/23/23 16:22:00 EDT, Height, 56.1, [...] Personnel Name: Kiley Call MD, V Position: [facility] Physician - Primary Care Member Role: PCP Address: Address: [address] [place] [address]- Care Team Related Persons Name: SOLANGE MEADOWS Address: home [address] [place] [address]
--- OUTSIDE RECORDS SUMMARY | 2024-04-20 09:46 | XMS_ITS | Continuity of Care Document ---
Author Organization [facility] Address [address] [place] [address]- Care Team Providers Care Sofa Cover Inspector Name Role Phone Jakub DAVIS, Kiley Dawkins Primary Care Physician [place] [facility] [place]/01[place]23 - 08/29/23 [facility] [address] [place], [place] [address] Attending Physician: Kiley Call MD, V Allergies, Adverse Reactions, Alerts No Known Medication Allergies Medications Mei 12 Hour Allergy 60 mg oral tablet 1 tablet = 60 mg, By Mouth, 2 times a day, # 60 tablet, 6 Refills, Maintenance, 08/27/23 11:28:00 EDT, [facility] #[id number], Partial fill upon patient request if the [...] 0 Refills, Maintenance, 06/23/23 11:54:00 EST, Gel, [facility] #53650, Partial fill upon patient request if the prescription is for a schedule II opioid drug., 153, cm, 01/28/23 15:40:00 EDT... Start Date: 06/23/23 Status: Ordered Flonase Allergy Relief 50 mcg/inh nasal spray 1 sprays, Nares, Both, 2 times a day, PRN Congestion, # 16 Gm, 3 Refills, Maintenance, 03/02/23 8:07:00 EDT, [facility] #[id number], Partial fill upon patient request if the [...] Refills, Maintenance, 03/11/23 12:32:00 EDT, DIS Tablet, [facility] #[id number], Partial fill upon patient request if... Start Date: 03/11/23 Status: Ordered PriLOSEC OTC 20 mg oral delayed release tablet 1 tablet = 20 mg, By Mouth, Daily, # 90 tablet, 3 Refills, Maintenance, 03/03/23 7:55:00 EDT, EC Tablet, [facility] #[id number], Partial fill upon patient request if the [...] Personnel Name: Jakub DAVIS, Kiley Dawkins Position: [facility] Physician - Primary Care Member Role: PCP Address: Address: [address] [place] [address]- Care Team Related Persons Name: SOLANGE GRANADOS Address: home [address] [place] [address]
--- OUTSIDE RECORDS SUMMARY | 2024-04-20 09:46 | XMS_ITS | Continuity of Care Document ---
Author Organization [facility] Address [address] [facility], [address] d Floor, [address] [place] [address]- Care Team Providers Care Branch Employment Coordinator Name Role Phone Not on Staff, PCP Primary Care Physician Unavail able Encounter [facility] Date(s): 03/12/23 - 04/22/23 [facility] [address], [address] Floor, [address] [place] [address] Attending Physician: Venkatesh DAVIS, Denys Marrufo Admitting Physician: Venkatesh DAVIS, Denys Marrufo Referring Physician: Kiley Call MD, V Allergies, [...] Gm, 3 Refills, Maintenance, 03/02/23 8:07:00 EDT, [facility] #[id number], Partial fill upon patient request if the [...] Refills, Maintenance, 03/11/23 12:32:00 EDT, DIS Tablet, [facility] #[id number], Partial fill upon patient request if... Start Date: 03/11/23 Status: Ordered PriLOSEC OTC 20 mg oral delayed release tablet 1 tablet = 20 mg, By Mouth, Daily, # 90 tablet, 3 Refills, Maintenance, 03/03/23 7:55:00 EDT, EC Tablet, [facility] #[id number], Partial fill upon patient request if the [...] Related Persons Name: SOLANGE GRANADOS Address: home [address] [place] [address]
--- OUTSIDE RECORDS SUMMARY | 2024-04-20 09:46 | XMS_ITS | Continuity of Care Document ---
Author Organization [facility] Address [address] [place] [address]- Care Team Providers Care Anchor Tacker Name Role Phone Not on Staff, PCP Primary Care Physician Unavail able Encounter [facility] [place] Date(s): 02/04/23 - 03/06/23 [facility] [address] [place], [place] [email or web address] Allergies, Adverse Reactions, Alerts No Known Medication Allergies Medications Botox Inj 0 Refills, Maintenance, 01/28/23 15:45:00 EDT, Partial fill upon patient request if the prescription is for a schedule II opioid drug. Start Date: 01/28/23 Status: Ordered Flonase Allergy Relief 50 mcg/inh nasal spray 1 sprays, Nares, Both, 2 times a day, PRN Congestion, # 16 Gm, 3 Refills, Maintenance, 03/02/23 8:07:00 EDT, [facility] #[id number], Partial fill upon patient request if the prescription is for a schedule II opioid drug., 153, cm, 01/28/23 15:40:... Start Date: 03/02/23 Status: Ordered Nurtec ODT 75 mg oral tablet, disintegrating 1 tablet = 75 mg, By Mouth, Every 24 hours, PRN as needed for migraine headache, not to exceed 75 mg in 24 hours, # 30 tablet, 6 Refills, Maintenance, 02/27/23 14:10:00 EDT, [facility] #[id number], Partial fill upon patient request if... Start Date: 02/27/23 Status: Ordered PriLOSEC OTC 20 mg oral delayed release tablet 1 tablet = 20 mg, By Mouth, Daily, # 90 tablet, 3 Refills, Maintenance, 03/03/23 7:55:00 EDT, EC Tablet, [facility] #[id number], Partial fill upon patient request if the [...] Personnel Name: Not on Staff, PCP Position: [facility] Physician (General Medicine) Member Role: PCP Care Team Related Persons Name: DARWIN SOLANGE Address: home [address] [place] [address]
--- OUTSIDE RECORDS SUMMARY | 2024-04-20 09:46 | XMS_ITS | Continuity of Care Document ---
Author Organization [facility] Address [address] [place] [address]- Care Team Providers Care Sand Operator Name Role Phone Jakub DAVIS, Kliey Dawkins Primary Care Physician [id number] Date([facility]24 - 04/15/24 [facility] [address] [place], [place] [address] Encounter Type: Triage Allergies, Adverse Reactions, Alerts No Known Medication Allergies Medications Mei 12 Hour Allergy 60 mg oral tablet 1 tablet = 60 mg, By Mouth, 2 times a day, # 60 tablet, 6 Refills, Maintenance, 08/27/23 11:28:00 AM EDT, [facility] #[id number], Partial fill upon patient request if the prescription is for a schedule II opioid drug., 153, cm, 08/27/23 11:13:00 EDT, Height Start Date: 08/27/23 Status: Ordered Quantity: 60.0 Unit: tablet Repeat number: 7 Indication: Esophageal obstruction Botox Inj 0 Refills, Maintenance, 01/28/23 3:45:00 PM EDT, Partial fill upon patient request if the prescription is for a schedule II opioid drug. Start Date: 01/28/23 Status: Ordered Repeat number: 1 diclofenac 1% topical gel 1 application, Topically, 4 times a day, # 100 Gm, 0 Refills, Maintenance, 06/23/23 11:54:00 AM EST,Gel, [facility] #[id number], Partial fill upon patient request if the prescription is for a schedule II opioid drug., 153, cm, 01/28/23 15:40:00 EDT, Height Start Date: 06/23/23 Status: Ordered Quantity: 100.0 Unit: g Repeat number: 1 Indication: Other bursitis of hip, left hip Fish Oil By Mouth, 0 Refills, Maintenance, 10/05/23 5:22:00 PM EDT, Partial fill upon patient request if the prescription is for a schedule II opioid drug. Start Date: 10/05/23 Status: Ordered Repeat number: 1 Flonase Allergy Relief 50 mcg/inh nasal spray 1 sprays, Nares, Both, 2 times a day, PRN Congestion, # 16 Gm, 3 Refills, Maintenance, 03/02/23 8:07:00 AM EDT, [facility] #[id number], Partial fill upon patient request if the prescription is for a schedule II opioid drug., 153, cm, 01/28/23 15:40:00 EDT, Height Start Date: 03/02/23 Status: Ordered Quantity: 16.0 Unit: g Repeat number: 4 Indication: Allergic rhinitis, unspecified metroNIDAZOLE 0.75% topical cream 0 Refills, Maintenance, 12/23/23 4:21:00 PM EDT, Partial fill upon patient request if the prescription is for a schedule II opioid drug. Start Date: 12/23/23 Status: Ordered Repeat number: 1 Multivitamin 0 Refills, Maintenance, 10/05/23 5:22:00 PM EDT, Partial fill upon patient request if the prescription is for a schedule II opioid drug. Start Date: 10/05/23 Status: Ordered Repeat number: 1 Nurtec ODT 75 mg oral tablet, disintegrating 1 tablet = 75 mg, By Mouth, Every 24 hours, PRN as needed for migraine headache, not to exceed 75 mg in 24 hours, # 16 tablet, 5 Refills, Maintenance, 02/16/24 11:43:00 AM EDT, DIS Tablet, [facility] #[id number], Partial fill upon patient request if the prescription is for a schedule II opioid drug., 152.4, cm, 02/16/24 11:30:00 EDT, Height, 56.1, kg, 11/23/23 10:11:00 EDT, Dry Weight Start Date: 02/16/24 Status: Ordered Quantity: 16.0 Unit: tablet Repeat number: 6 Indication: Chronic migraine without aura, not intractable, without status migrainosus omeprazole 20 mg oral enteric coated capsule 1 capsule, By Mouth, Daily, # 90 capsule, 3 Refills, Maintenance, 12/29/23 8:37:00 AM EDT, [facility] #[id number], 152.4, cm, 12/23/23 16:22:00 EDT, Height, 56.1, kg, 11/23/23 10:11:00 EDT, Dry Weight Start Date: 12/29/23 Status: Ordered Quantity: 90.0 Unit: capsule Repeat number: 1 Vitamin B12 0 Refills, Maintenance, 10/05/23 5:22:00 PM EDT, Partial fill upon patient request if the prescription is for a schedule II opioid drug. Start Date: 10/05/23 Status: Ordered Repeat number: 1 Problem List Condition Confirmation Course Effective Dates [...] 100 in lifetime) entered on: 01/28/23 Sex Sex Representation Female (finding) Patient Care team information Care Team Personnel Name: Jakub DAVIS, Kiley Dawkins Position: S Physician - Primary Care Member Role: PCP Address: [address] [place] [address] Telecom: Care Team Related Persons Name: SOLANGE MEADOWS Insurance Providers Guarantor name: MADISON [facility] Information #: 1 Payer: [employer] Member Number: NA Policy Number: NA Group Number: NA
--- OUTSIDE RECORDS SUMMARY | 2024-04-20 09:46 | XMS_ITS | Continuity of Care Document ---
Author Organization [facility] Address [address] [place] [address]- Care Team Providers Care Mobile Equipment Servicer Name Role Phone Kiley Call MD, V Primary Care Phys[id number] Date[facility] 08/14/23 - 09/13/23 [facility] [address] [place], [place] [address] Allergies, Adverse Reactions, Alerts No Known Medication Allergies Medications Mei 12 Hour Allergy 60 mg oral tablet 1 tablet = 60 mg, By Mouth, 2 times a day, # 60 tablet, 6 Refills, Maintenance, 08/27/23 11:28:00 EDT, [facility] #[id number], Partial fill upon patient request if the prescription is for a schedule II opioid drug., 153dayna, 08/27/23 11:13:00 EDT... Start Date: 08/27/23 Status: Ordered Botox Inj 0 Refills, Maintenance, 01/28/23 15:45:00 EDT, Partial fill upon patient request if the prescription is for a schedule II opioid drug. Start Date: 01/28/23 Status: Ordered diclofenac 1% topical gel 1 application, Topically, 4 times a day, # 100 Gm, 0 Refills, Maintenance, 06/23/23 11:54:00 EST, Gel, [facility] #[id number], Partial fill upon patient request if the prescription is for a schedule II opioid drug., 153, cm, 01/28/23 15:40:00 EDT... Start Date: 06/23/23 Status: Ordered Flonase Allergy Relief 50 mcg/inh nasal spray 1 sprays, Nares, Both, 2 times a day, PRN Congestion, # 16 Gm, 3 Refills, Maintenance, 03/02/23 8:07:00 EDT, [facility] #[id number], Partial fill upon patient request if the [...] Refills, Maintenance, 03/11/23 12:32:00 EDT, DIS Tablet, [facility] #[id number], Partial fill upon patient request if... Start Date: 03/11/23 Status: Ordered PriLOSEC OTC 20 mg oral delayed release tablet 1 tablet = 20 mg, By Mouth, Daily, # 90 tablet, 3 Refills, Maintenance, 03/03/23 7:55:00 EDT, EC Tablet, [facility] #[id number], Partial fill upon patient request if the [...] Personnel Name: Jakub DAVIS, Kiley Dawkins Position: [facility] Physician - Primary Care Member Role: PCP Address: Address: [address] [place] [address]- Care Team Related Persons Name: SOLANGE GRANADOS Address: home [address] [place] [address]
--- OUTSIDE RECORDS SUMMARY | 2024-04-20 09:46 | XMS_ITS | Continuity of Care Document ---
Author Organization [facility] Address [address] [place] [address]- Care Team Providers Care Film Reader Name Role Phone Kiley Call MD, V Primary Care Physician [place] [facility] [place] 10/08/23 - 11/07/23 [facility] [address] [place], [place] [address] Allergies, Adverse Reactions, Alerts No Known Medication Allergies Medications Mei 12 Hour Allergy 60 mg oral tablet 1 tablet = 60 mg, By Mouth, 2 times a day, # 60 tablet, 6 Refills, Maintenance, 08/27/23 11:28:00 EDT, [facility] #[id number], Partial fill upon patient request if the [...] 0 Refills, Maintenance, 06/23/23 11:54:00 EST, Gel, [facility] #[id number], Partial fill upon patient request if the [...] Gm, 3 Refills, Maintenance, 03/02/23 8:07:00 EDT, [facility] #[id number], Partial fill upon patient request if the [...] Refills, Maintenance, 03/11/23 12:32:00 EDT, DIS Tablet, [facility] #[id number], Partial fill upon patient request if... Start Date: 03/11/23 Status: Ordered PriLOSEC OTC 20 mg oral delayed release tablet 1 tablet = 20 mg, By Mouth, Daily, # 90 tablet, 3 Refills, Maintenance, 03/03/23 7:55:00 EDT, EC Tablet, [facility] #[id number], Partial fill upon patient request if the [...] Primary Care Member Role: PCP Address: Address: [address] [place] [address]- Care Team Related Persons Name: SOLANGE GRANADOS Address: home [address] [place] [address]
--- OUTSIDE RECORDS SUMMARY | 2024-04-20 09:46 | XMS_ITS | Continuity of Care Document ---
Author Organization [facility] Address [address] [place] [address]- Care Team Providers Care Portfolio Administrator Name Role Phone Jakub DAVIS, Kiley Dawkins Primary Care Physician Encounter [facility] Date(s): 09/09/23 - 10/09/23 [facility] [address] [place] [address]- [place] Allergies, Adverse Reactions, Alerts No Known Medication Allergies Medications Mei 12 Hour Allergy 60 mg oral tablet 1 tablet = 60 mg, By Mouth, 2 times a day, # 60 tablet, 6 Refills, Maintenance, 08/27/23 11:28:00 EDT, [facility] #[id number], Partial fill upon patient request if the [...] 0 Refills, Maintenance, 06/23/23 11:54:00 EST, Gel, [facility] #[id number], Partial fill upon patient request if the [...] Gm, 3 Refills, Maintenance, 03/02/23 8:07:00 EDT, [facility] #[id number], Partial fill upon patient request if the [...] Refills, Maintenance, 03/11/23 12:32:00 EDT, DIS Tablet, [facility] #[id number], Partial fill upon patient request if... Start Date: 03/11/23 Status: Ordered PriLOSEC OTC 20 mg oral delayed release tablet 1 tablet = 20 mg, By Mouth, Daily, # 90 tablet, 3 Refills, Maintenance, 03/03/23 7:55:00 EDT, EC Tablet, [facility] #[id number], Partial fill upon patient request if the [...] Care Member Role: PCP Address: Address: [address] [place] [address]- Care Team Related Persons Name: SOLANGE GRANADOS Address: [address] [address]
--- OUTSIDE RECORDS SUMMARY | 2024-04-20 09:46 | XMS_ITS | Continuity of Care Document ---
Author Organization [facility] Address [address] [place] [address]- Care Team Providers Care Paint Department Supervisor Name Role Phone Kiley Call MD, V Primary Care Physician [facility] [facility] Date(s): 07/21/23 - 08/20/23 [facility] [address] [place] [address]- Allergies, Adverse Reactions, Alerts No Known Medication Allergies Medications Botox Inj 0 Refills, Maintenance, 01/28/23 15:45:00 EDT, Partial fill upon patient request if the prescription is for a schedule II opioid drug. Start Date: 01/28/23 Status: Ordered diclofenac 1% topical gel 1 application, Topically, 4 times a day, # 100 Gm, 0 Refills, Maintenance, 06/23/23 11:54:00 EST, Gel, [facility] #[id number], Partial fill upon patient request if the prescription is for a schedule II opioid drug., 153, cm, 01/28/23 15:40:00 EDT... Start Date: 06/23/23 Status: Ordered Flonase Allergy Relief 50 mcg/inh nasal spray 1 sprays, Nares, Both, 2 times a day, PRN Congestion, # 16 Gm, 3 Refills, Maintenance, 03/02/23 8:07:00 EDT, [facility] #[id number], Partial fill upon patient request if the [...] Refills, Maintenance, 03/11/23 12:32:00 EDT, DIS Tablet, [facility] #[id number], Partial fill upon patient request if... Start Date: 03/11/23 Status: Ordered PriLOSEC OTC 20 mg oral delayed release tablet 1 tablet = 20 mg, By Mouth, Daily, # 90 tablet, 3 Refills, Maintenance, 03/03/23 7:55:00 EDT, EC Tablet, [facility] #[id number], Partial fill upon patient request if the [...] Personnel Name: Jakub DAVIS, Kiley Dawkins Position: [facility] Physician - Primary Care Member Role: PCP Address: Address: [address] [place] [address]- Care Team Related Persons Name: SOLANGE GRANADOS Address: home [address] [place] [address]
--- OUTSIDE RECORDS SUMMARY | 2024-04-20 09:46 | XMS_ITS | Continuity of Care Document ---
Author Organization [facility] Address [address] [place] [address]- Care Team Providers Care Counter Checker Name Role Phone Kiley Call MD, V Primary Care Physician [phone] Encounter [facility] ACCT R [id number] Date(s): 12/23/23 - 01/22/24 [facility] [address] [place] [address]- Attending Physician: Admtr, Steven8 Admitting Physician: Admtr, Ar8 Referring Physician: Admtr, Ar8 Allergies, Adverse Reactions, Alerts No Known Medication Allergies Medications Mei 12 Hour Allergy 60 mg oral tablet 1 tablet = 60 mg, By Mouth, 2 times a day, # 60 tablet, 6 Refills, Maintenance, 08/27/23 11:28:00 EDT, [facility] #[id number], Partial fill upon patient request if the [...] 0 Refills, Maintenance, 06/23/23 11:54:00 EST, Gel, [facility] #[id number], Partial fill upon patient request if the [...] Gm, 3 Refills, Maintenance, 03/02/23 8:07:00 EDT, [facility] #[id number], Partial fill upon patient request if the [...] Refills, Maintenance, 03/11/23 12:32:00 EDT, DIS Tablet, [facility] #[id number], Partial fill upon patient request if... Start Date: 03/11/23 Status: Ordered omeprazole 20 mg oral enteric coated capsule 1 capsule, By Mouth, Daily, # 90 capsule, 3 Refills, Maintenance, 12/29/23 8:37:00 EDT, [facility] #[id number], 152.4, cm, 12/23/23 16:22:00 EDT, Height, 56.1, [...] Personnel Name: Jakub DAVIS, Kiley Dawkins Position: [facility] Physician - Primary Care Member Role: PCP Address: Address: [address] [place] [address]- Care Team Related Persons Name: SOLANGE MEADOWS Address: home [address] [place] [address]
[2024-04-20 09:51] VITALS: BP 132/80; PULSE 82; TEMP 36.6; O2SAT 98
--- OUTSIDE RECORDS SUMMARY | 2024-04-20 10:00 | XMS_ITS | Referral Summary ---
Author Organization [facility] Address [address] [place] [address] [address] [place] [address] Encounter Date(s): 01/18/21 - 01/18/21 [facility] [address] [facility] [address] [place] [address] Discharge Disposition: Home Social History Social History Type Response
== END 2024-04-20 10:33 | disposition home or self-care (01) ==
PROVIDERS: Visit Provider Physician Assistant
DX: N30.00 Acute cystitis without hematuria (principal); H66.91 Otitis media, unspecified, right ear; G43.909 Migraine, unspecified, not intractable, without status migrainosus; Z13.9 Encounter for screening, unspecified

== ENCOUNTER 2024-12-27 07:12 | Outpatient (REF) | payer OTHER, SELFPAY ==
[2024-12-27 11:02] LABS: Resp Syncy Virus RNA Qual PCR NEGATIVE (Negative); SARS COV2 PCR INHOUSE NEGATIVE (Negative)
== END 2024-12-27 07:13 | disposition home or self-care (01) ==
LOC: HO.LNP 07:12
PROVIDERS: Visit Provider Physician Assistant Medical
DX: H92.01 Otalgia, right ear (principal); H92.02 Otalgia, left ear; R09.81 Nasal congestion; R09.89 Other specified symptoms and signs involving the circulatory and respiratory systems; Z79.51 Long term (current) use of inhaled steroids; Z79.899 Other long term (current) drug therapy
CPT/HCPCS: 87637; 99212

== ENCOUNTER 2024-12-27 07:12 | Outpatient (AMB) | payer OTHER, SELFPAY ==
--- OUTSIDE RECORDS SUMMARY | 2016-05-15 11:30 | XMS_ITS | Continuity of Care Document ---
Author Organization [facility] Address [address] [place] [address] Phone Care Team Providers Care Direct Marketing Intern Name Role Phone Rylan PTGudelia Unavailable Unavailable Procedures Procedure Date Progress Note THERAPEUTIC EXERCISES FUNC ACTIVITY HOT/COLD PACK ELECTRIC STIMULATION UNA THERAPEUTIC EXERCISES FUNC ACTIVITY HOT/COLD PACK ELECTRIC STIMULATION UNATT THERAPEUTIC EXERCISES NEUROMUSCULAR RE-ED FUNC ACTIVITY HOT/COLD PACK ELECTRIC STIMULATION UNATT THERAPEUTIC EXERCISES MANUAL THERAPY FUNC ACTIVITY HOT/COLD PACK ELECTRIC STIMULATION UNATT THERAPEUTIC EXERCISES FUNC ACTIVITY HOT/COLD PACK ELECTRIC STIMULATION UNATT THERAPEUTIC EXERCISES HOT/COLD PACK ELECTRIC STIMULATION UNATT PT EVALUATION THERAPEUTIC EXERCISES MANUAL THERAPY Advance Directives Directive Yes / No Effective Date File Name No Information Encounters Encounter Description Practice Location Reason(s) For Visit Diagnoses Date Provider Providers Copied on Encounter [facility], [address], [place], [place], [id number], [place] tel:[phone] [facility] No Information Dec-2 2-201 6 Threlkeld Gudelia. . Referring Provider: Bettina Mazariegos [address] [place] [address], [id number]. tel:[phone] [place] [address], [id number], tel:[phone] [facility] No Information Dec-1 9-201 6 Threlkeld Gudelia. . Referring Provider: Bettina Mazariegos [address] [place] [address], [id number]. tel:[phone] [place] [address], [id number], tel:[phone] [facility] No Information Dec-1 4-201 6 Threlkeld Gudelia. . Referring Provider: Bettina Mazariegos [address] [place] [address], [id number]. tel:[phone] [place] [address], [id number], [place] tel:[phone] [facility] No Information Dec-1 2-201 6 Threlkeld Gudelia. . Referring Provider: Bettina Mazariegos [address] [place] [address], [id number]. tel:[phone] [place] [address], [id number], [place] tel:[phone] [facility] No Information Dec-0 1-201 6 Threlkeld Gudelia. . Referring Provider: Bettina Mazariegos [address] [place] [address], [id number]. tel:[phone], [id number], tel:[phone] [facility] No Information Nov-2 8-201 6 Threlkeld Gudelia. . Referring Provider: Bettina Mazariegos [address] [place] [address], [id number]. tel:[phone] [facility], [address], [place], [place], [id number], tel:[phone] [facility] Low back painSacrococcygeal disorders, not elsewhere classifiedOth symptoms and signs involving the dgstv sys and abdomenOth symptoms and signs involving the musculoskeletal systemAcquired deformity of pelvis 3201 6 Rylan Galeas. . Referring Provider: Bettina Mazariegos, [address] [place] [address], [place], [address]. tel:[phone] Family History Family Member Type Diagnosis Age At Onset No Information Payers Payer name Insurance type Covered alliance party ID Authoriza tion(s) No Information Social History Type Description Quantity Date Captured Comments Sex Female Smoking Status No Information Chief Complaint And Reason For Visit No Information Reason For Referral Reason For Referral No Information History Of Present Illness Encounter Date Complaint History Of Prese nt Illness No Information Functional Status Date Functional Assessmen t No Information Instructions Date Instruction Additional Infor mation No Information Assessments Type Assessment Date No Information Patient Care Teams Name Effective Dates (start - stop) Status Members No Information
--- OUTSIDE RECORDS SUMMARY | 2024-12-21 23:59 | XMS_ITS | Continuity of Care Document ---
Author Organization [facility] Kimberly yury Address [address] [place] [address] [address] [place] [address]- Care Team Providers Care Machine Room Engineer Name Role Phone Kiley Call MD, V Primary Care Physician [phone] [place] [facility] [place] 11[place]21[place]24 - 12/21/24 [facility] [address] [address] Attending Physician: Marie Mancilla Admitting Physician: Marie Mancilla Referring Physician: Marie Mancilla Encounter Type: Triage Allergies, Adverse Reactions, Alerts No Known Allergies Immunizations Given and Recorded Vaccine Date Status Refusal Reason Influenza Virus Vaccine (oldterm) 1 03/27/24 Recor ded 1Result Comment: received on Base Medications azelastine 137 mcg/inh (0.1%) nasal spray 2 sprays = 274 mcg, Nares, Both, Daily at bedtime, 0 Refills, Maintenance, 05/24/24 8:10:00 AM EST Start Date: 05/24/24 Status: Ordered Repeat number: 1 Botox Inj every 3 months, 0 Refills, Maintenance, 01/28/23 3:45:00 PM EDT Start Date: 01/28/23 Status: Ordered Repeat number: 1 diclofenac 1% topical gel 1 application, Topically, 4 times a day, PRN Pain , Moderate, not to exceed 8 grams/day/single joint of upper extremities, # 100 Gm, 1 Refills, Maintenance, 08/31/24 2:33:00 PM EDT, Gel, [facility] #[id number], Partial fill upon patient request if the prescription is for a schedule II opioid drug., 152.4, cm, 08/31/24 14:07:00 EDT, Height, 54.8, kg, 06/08/24 12:02:00 EST, Dry Weight Start Date: 08/31/24 Status: Ordered Quantity: 100.0 Unit: g Repeat number: 2 Indications: Pain in left foot; Fish Oil 2 gummies, Chew, Daily, 0 Refills, Maintenance, 10/05/23 5:22:00 PM EDT Start Date: 10/05/23 Status: Ordered Repeat number: 1 meloxicam 7.5 mg oral tablet 1 tablet = 7.5 mg, By Mouth, 2 times a day, Take take for 7 to 10 days even if no pain, then as needed, # 60 tablet, 1 Refills, Maintenance, 09/26/24 3:01:00 PM EDT, [facility] #[id number], Partial fill upon patient request if the prescription is for a schedule II opioid drug., 152.4, cm, 09/26/24 14:21:00 EDT, Height, 54.8, kg, 06/08/24 12:02:00 EST, Dry Weight Start Date: 09/26/24 Stop Date: 11/25/24 Status: Ordered Quantity: 60.0 Unit: tablet Repeat number: 2 metroNIDAZOLE 0.75% topical cream 0 Refills, Maintenance, 12/23/23 4:21:00 PM EDT, Partial fill upon patient request if the prescription is for a schedule II opioid drug. Start Date: 12/23/23 Status: Ordered Repeat number: 1 Multivitamin 1 gummie, Chew, Daily, 0 Refills, Maintenance, 10/05/23 5:22:00 PM EDT Start Date: 10/05/23 Status: Ordered Repeat number: 1 omeprazole 20 mg oral enteric coated capsule 1 capsule, By Mouth, Daily, # 90 capsule, 3 Refills, Maintenance, 12/29/23 8:37:00 AM EDT, [facility] #[id number], 152.4, cm, 12/23/23 16:22:00 EDT, Height, 56.1, kg, 11/23/23 10:11:00 EDT, Dry Weight Start Date: 12/29/23 Status: Ordered Quantity: 90.0 Unit: capsule Repeat number: 1 Ubrelvy 100 mg oral tablet 1 tablet = 100 mg, By Mouth, Daily, PRN Migraine Headache, may repeat dose in 2 hours, do not exceed 2 doses in 24 hours, # 8 tablet, 5 Refills, Acute 12/17/25 9:11:00 AM EDT, 12/17/24 9:11:00 AM EDT, [id number], Partial fill upon patient request if the prescription is for a scheduleII opioid drug., 152, cm, 11/30/24 9:59:00 EDT, Height, 54.5, kg, 10/25/24 9:28:00 EDT, Dry Weight Start Date: 12/17/24 Stop Date: 12/17/25 Status: Ordered Quantity: 8.0 Unit: tablet Repeat number: 6 Vitamin B12 = 500 mcg, By Mouth, Daily, 0 Refills, Maintenance, 10/05/23 5:22:00 PM EDT Start Date: 10/05/23 Status: Ordered Repeat number: 1 Problem List Condition Confirmation Course Effective Dates Status Health St atus Informant Allergic rhinitis with postnasal drip Confirmed Active Back pain Confirmed Active BCC (basal cell carcinoma), face Confirmed Active Left-sided chest wall pain Confirmed Active Dysuria Confirmed Active History of hysterectomy Confirmed Active Pain of left heel Confirmed Active History of traumatic brain injury Confirmed Active Schatzki's ring of distal esophagus Confirmed Active Health care maintenance Confirmed Active Social History Social History Type Response Smoking Status Never (less than 100 in lifetime) entered on: 01/28/23 Sex Sex Representation Female (finding) Patient Care team information Care Team Personnel Name: Kiley Call MD, V Position: S Physician - Primary Care Member Role: PCP Address: [address] [place] [address] Telecom: Care Team Related Persons Name: SOLANGE MEADOWS Insurance Providers Guarantor name: MADISON MEADOWS [facility] Plan Information #: 1 Payer: [facility] [facility] [facility] Payer Identifier: KAREN Member Number: [id number] Group Number: [id number] Subscriber Identifier: [id number] Relationship to Subscriber: self Coverage Type: () Coverage Verification Date: KAREN Telecom: KAREN Address: NA
--- OUTSIDE RECORDS SUMMARY | 2024-12-27 07:14 | XMS_ITS | Patient Health Record ---
Author Organization [facility] Address [address] [place], [place] [id number] Care Team Providers Care Drapery Sewer Hand Name Role Phone GUY LONDON Unavailable [phone] Reason For Referral No Information Plan Of Treatment No Information Insurance Providers Payer Name Payer Address Payer Phone Subscriber Number Group Number Insured Name Patient Relationship to Insured Coverage Start Date Coverage End Date [facility] [address] [place] [address] [id number] MADISON MEADOWS Self - patient is the insured
[2024-12-27 07:21] VITALS: BP 98/72; PULSE 87; TEMP 36.7; O2SAT 99; BMI 23.4
--- NOTE | 2024-12-27 07:21 | AM.OFFWIN_ITS ---
Intake Vital Signs 12/27/24 07:21 12/27/24 07:27 Height 5 ft Weight 120 lb BMI 23.4 BP 98/72 92/70 Blood Pressure Location Lt brachial Rt brachial Position Sitting Sitting Pulse 87 Pulse Source Pulse Oximeter Temp 98.0 F Temp Source Oral Pulse Oximetry (%) 99 Oxygen Delivery Method Room Air Intake Visit Reasons: EP-b/l ear infection Intake Note: presents with bilateral ear pain; RT > LT. Patient Tobacco Use Status: Never used Tobacco Allergies No Known Allergies Allergy (Verified 12/27/24 07:23) Do you need a note to return to daycare/school/sports/work: No HPI HPI Comments History of Present Illness Details History of Present Illness - The patient is a 49-year-old female pr esenting with symptoms of sinusitis. - Symptoms began this past weekend, incl uding sinus headache and ear discomfort, particularly in the right ear extending to the jaw. - The patient reports sinus congestion w ithout coughing up any sputum. - She has a history of allergies, exacer bated by recent travel and exposure to open windows and potential environmental allergens. - The patient has experienced ear infect ions since moving to the current location, attributed to severe allergies. - Previously received allergy shots Giraffe Friend e residing in [place], but discontinued them after moving to [place]. - Currently using Flonase and Zyrtec for allergy management. - She denies fever, chills, CP, SOB, abd pain, n/v/d Physical Exam General: Cooperative, healthy appearing, comfortable, no acute distress and well developed Head: Normal to inspection Ears: Hearing grossly normal bilaterally. No tragus or mastoid tenderness noted. Auditory canals clear bilaterally. TM's normal, not bulging. No fluid noted. Nose: Normal external nose present. Moist mucosa. Turbinates normal bilaterally, not boggy. Face and sinus: Tenderness to palpation of the frontal and maxillary sinuses bilaterally. Neck: Normal visual inspection and Yes full ROM. No lymphadenopathy noted. Respiratory: Normal respiratory effort and able to speak in complete sentences. Clear to auscultation bilaterally Cardiovascular: Regular rate and rhythm. Normal S1 and S2 GI: Normal to inspection. Soft to palpation and nontender, nondistended. No guarding noted. Skin: No rashes or lesions noted PFSH Social History Patient Tobacco Use Status: Never used Tobacco Review of Systems Const All systems reviewed & are unremarkable except as noted in HPI and below Physical Exam Vital Signs: Last Vital Signs Temp 98.0 F 12/27/24 07:21 Pulse 87 12/27/24 07:21 BP 92/70 12/27/24 07:27 Pulse Ox 99 12/27/24 07:21 Oxygen Delivery Method Room Air 12/27/24 07:21 BMI result Body Mass Index 23.4 Assessment & Plan Assessment & Plan (1) Nasal sinus congestion: Code(s): R09.81 - Nasal congestion Plan Most likely sinusitis vs URI vs covid vs flu vs RSV vs allergic rhinitis Plan - darrick order covid/flu/rsv swab - start Augmentin BID for 7 days - continue with Flonase - tylenol or motrin as needed for pain or fever - steam showers - follow up with PCP Orders: Orders SARS-CoV2/FLU/RSV Today R09.89 - Other specified symptoms and signs involving the circulatory and respiratory systems Medications: New amoxicillin-pot clavulanate 875-125 mg 1 tab PO Q12H 14 tabs 0RF Coding Level of Care Code Est Pt Level 3 (32409) Diagnoses Nasal sinus congestion R09.81
[2024-12-27 07:27] VITALS: BP 92/70
== END 2024-12-27 08:06 | disposition home or self-care (01) ==
PROVIDERS: Visit Provider Physician Assistant Medical
DX: R09.81 Nasal congestion (principal)